=== PATIENT | female | born 1995 | race Caucasian/White ===

== ENCOUNTER → 2016-05-17 | Outpatient (CLI) | payer OTHER ==
[~2016-05-17] MED LIST: AMOX500C3 PO; DIPH25CA65 PO; ONDA4TAB65 PO; OXYC-57 PO; PEDICHW50 PO; PRENTAB26 PO; VNTHFA/IN INH
[2016-05-20 13:25] LABS: CHLAMYDIA TRACH RNA*** NOT DETECTED (NOT DETECTED); GC (NEIS GONORRHOEAE)RNA** NOT DETECTED (NOT DETECTED)
== END | disposition home or self-care (01) ==
LOC: C.LABSPEC 10:01
PROVIDERS: ATTEND Obstetrics & Gynecology
DX: O21.9 Vomiting of pregnancy, unspecified (principal)

== ENCOUNTER → 2016-07-18 | Outpatient (CLI) | payer OTHER ==
[2016-07-18 12:58] LABS: BASO % 0.4 %; BASO ABS # 0.03 K/uL (0-0.2); COMPLETE YES; EOS % 1.3 %; HEMATOCRIT 35.5 % (37-47); IG% 0.3 %; LYMPH % 18.4 %; LYMPH ABS # 1.46 K/uL (1.2-3.4); MEAN CELL VOLUME 83.9 fL (80-100); MEAN CORPUSCULAR HEMOGLOBIN 29.8 pg (25-34); MEAN CORPUSCULAR HGB CONC 35.5 g/dl (32-36); MONO % 6.4 %; NEUT % 73.2 %; PLATELET COUNT 192 K/uL (130-400); RED BLOOD COUNT 4.23 M/uL (4.2-5.4); WHITE BLOOD COUNT 7.94 K/uL (4.8-10.8)
[2016-07-18 13:35] LABS: ALKALINE PHOSPHATASE 80 U/L (45-117); ALT/SGPT 28 U/L (12-78); AST/SGOT 15 U/L (15-37)
[2016-07-18 14:15] LABS: GTGD 50 Grams
[2016-07-19 14:50] LABS: AFP CONCENTRATION 37.3 NG/ML; AFP MULTIPLE OF MEDIAN 1.21; AFPTS GESTATIONAL AGE 17.3 WEEKS; AFPTS INSULIN DEP DIABETIC? NO; AFPTS MATERNAL WT 214 LBS; ALPHA-FETOPROTEIN RACE CAUCASIAN=W; ESTRIOL MULTIPLE OF MEDIAN 0.82; HISTORY OF NTD NO; INHIBIN A 407 PG/ML; REPEAT SAMPLE? NO; hCG MULTIPLE OF MEDIAN 2.12
== END | disposition home or self-care (01) ==
LOC: C.LAB1850 11:24
PROVIDERS: ATTEND Obstetrics & Gynecology
DX: Z34.82 Encounter for supervision of other normal pregnancy, second trimester (principal); O21.9 Vomiting of pregnancy, unspecified; R89.9 Unspecified abnormal finding in specimens from other organs, systems and tissues

== ENCOUNTER → 2016-09-27 | Outpatient (CLI) | payer OTHER ==
[2016-09-27 17:14] LABS: HEMATOCRIT 33.7 % (37-47)
[2016-09-27 18:28] LABS: GTGD 50 Grams
== END | disposition home or self-care (01) ==
LOC: C.LAB1850 15:28
PROVIDERS: ATTEND Obstetrics & Gynecology
DX: Z34.83 Encounter for supervision of other normal pregnancy, third trimester (principal)

== ENCOUNTER → 2016-09-27 | Outpatient (CLI) | payer OTHER ==
[2016-09-27 18:22] LABS: URINE APPEARANCE CLEAR (CLEAR); URINE BILIRUBIN NEG (NEG); URINE COLOR YELLOW; URINE EPITHELIAL CELL AUTO 20-30 /lpf (0-5); URINE NITRITE NEG (NEG); URINE SPECIFIC GRAVITY 1.005 (1.000-1.030); UROBILINOGEN NEG (NEG)
[2016-09-27 18:23] LABS: MANUAL MICROSCOPIC REQUIRED? NO; REVIEW REQ? NO
== END | disposition home or self-care (01) ==
LOC: C.LABSPEC 17:29
PROVIDERS: ATTEND Obstetrics & Gynecology
DX: Z34.83 Encounter for supervision of other normal pregnancy, third trimester (principal)

== ENCOUNTER 2016-10-06 14:40 | Outpatient (CLI) | payer OTHER ==
[~2016-10-06] VITALS: Ht 175.3 cm; Wt 97.0 kg
[~2016-10-06 14:40] MED LIST changes: -AMOX500C3 PO; -DIPH25CA65 PO; -ONDA4TAB65 PO; -OXYC-57 PO; -PRENTAB26 PO; -VNTHFA/IN INH
[2016-10-06] MEDS ORDERED: VNTHFA/IN INH (16:09)
[2016-10-06 16:10] VITALS: Ht 175.3 cm; Wt 97.0 kg
[2016-10-06] MEDS ORDERED: ONDA4TAB65 PO (16:10)
[2016-12-21] MEDS ORDERED: OXYC-57 PO (07:37)
== END 2016-10-06 15:52 | disposition home or self-care (01) ==
LOC: C.LD 14:40 → C.OPB 14:40 → C.LD 15:38 → C.OPB 15:38 → UNDOADMIN 15:38 → C.OPB 15:52 → UNDODISIN 15:52
PROVIDERS: ATTEND Obstetrics & Gynecology
DX: O36.8130 Decreased fetal movements, third trimester, not applicable or unspecified (principal); R10.9 Unspecified abdominal pain; Z3A.28 28 weeks gestation of pregnancy

== ENCOUNTER 2016-11-30 15:14 | Emergency (ER) | payer OTHER ==
[~2016-11-30] VITALS: Ht 180.3 cm; Wt 96.8 kg
[~2016-11-30 15:14] MED LIST changes: -AMOX500C3 PO; -DIPH25CA65 PO; -OXYC-57 PO; -PRENTAB26 PO
[2016-11-30 15:16] VITALS: Ht 180.3 cm; Wt 96.8 kg
[2016-11-30 15:41] VITALS: TEMP 36.5
[2016-11-30 15:42] VITALS: O2SAT 96
[2016-11-30] MEDS ORDERED: ALBUT/IPRATROP 3MG/0.5MG NEB 3 ML VIAL INH STA (15:57)
--- NOTE | 2016-11-30 16:02 | DIAGNOSTIC IMAGING REPORT ---
CHEST 2 VIEWS ROUTINE CLINICAL HISTORY: cough, patient dyspnea COMPARISON STUDY: No previous studies for comparison. FINDINGS: The bones soft tissues and hemidiaphragms are normal. The cardiomediastinal silhouette is normal. The lungs are clear. The pulmonary vasculature is normal. IMPRESSION: Negative chest. The above report was generated using voice recognition software. It may contain grammatical, syntax or spelling errors. Electronically signed by: Holden Grey M.D. 11/30/2016 4:01 PM Dictated Date/Time: 11/30/2016 4:01 PM
--- NOTE | 2016-11-30 16:04 | EMERGENCY ROOM VISIT NOTE ---
History First contact with patient: 15:25 Chief Complaint: RESPIRATORY PROBLEMS Stated Complaint: TROUBLE BREATHING History of Present Illness The patient is a 21 year old female who presents to the Emergency Room with complaints of respiratory problems. The patient states that for the past 3 days , she has had a cough, wheezing and nasal congestion. Her cough has been productive of a yellowish mucus. She has a history of asthma and states that she has had both bronchitis and pneumonia in the past. She has been taking over -the-counter medications as well as amoxicillin for a urinary tract infection and feels that her symptoms are improving. She states that she has had some central chest pain with coughing, but this has been improving as well. She denies any fevers/chills, abdominal pain, nausea or vomiting. The patient sometimes has difficulty catching her breath when she coughs. She has not used any medications at home for her symptoms. She states she previously had an albuterol inhaler, but never had this medication refilled. The patient is currently 36 weeks . She denies any issues with her . Review of Systems A complete 10 point review of systems was reviewed with the patient with pertinent positives and negatives as per history of present illness. All else were negative. Past Medical/Surgical History Medical Problems: (1) Abdominal pain affecting (2) Asthma (3) History of pancreatitis Surgical Problems: (1) History of cholecystectomy Social History Smoking Status: Former Smoker Alcohol Use: none Current/Historical Medications Scheduled Albuterol Hfa (Ventolin Hfa), 2-4 PUFFS INH Q6H Amoxicillin (Amoxil), Unknown Dose PO BID Multivit/Min/Iron/Fol Ac/Pren ( Vitamin), 1 TAB PO DAILY Scheduled PRN Ondansetron Hcl (Zofran), 1 TAB PO Q6H PRN for Nausea Miscellaneous Medications Diphenhydramine Hcl (Benadryl Allergy), 1 CAP PO Physical Exam Vital Signs Date Time Temp Pulse Resp B/P (MAP) Pulse Ox O2 Delivery O2 Flow Rate FiO2 11/30/16 17:18 106 18 142/81 97 11/30/16 16:12 102 20 100 Nebulizer 11/30/16 15:42 96 Room Air 11/30/16 15:41 36.5 11/30/16 15:21 Room Air 11/30/16 15:16 107 16 123/74 96 Room Air Physical Exam VITALS: Vitals are noted on the nurse's note and reviewed by myself. Vital signs stable. GENERAL: This is a 21-year-old female, in no acute distress, nondiaphoretic, well-developed well-nourished. HEENT: Normocephalic. PERRLA. EOMI. Nares patent. Mucous membranes moist. Neck is supple without nuchal rigidity. HEART: Regular rate and rhythm without murmurs gallops or rubs. LUNGS: Diffuse expiratory wheezes throughout all lung valadez. No retractions or accessory muscle use. ABDOMEN: Gravid abdomen. NEURO: Patient was alert and oriented to person place and time. Medical Decision & Procedures ER Provider Diagnostic Interpretation: CHEST 2 VIEWS ROUTINE CLINICAL HISTORY: cough, patient dyspnea COMPARISON STUDY: No previous studies for comparison. FINDINGS: The bones soft tissues and hemidiaphragms are normal. The cardiomediastinal silhouette is normal. The lungs are clear. The pulmonary vasculature is normal. IMPRESSION: Negative chest. Medications Administered Medications (Trade) Dose Ordered Sig/Ariela Route Start Time Stop Time Status Last Admin Dose Admin Albuterol/ Ipratropium (Duoneb) 3 ml NOW STAT INH 11/30/16 15:57 11/30/16 15:58 DC 11/30/16 16:04 3 ML Albuterol (Ventolin Hfa Inhaler) 2 puffs NOW ONCE INH 11/30/16 17:00 11/30/16 17:01 DC 11/30/16 17:06 2 PUFFS ED Course The patient was evaluated as above. Labs were drawn and IV access was obtained. Patient was medicated with a DuoNeb treatment. Chest X-ray was performed and read by radiology as above. Patient was reevaluated and felt much better. Repeat exam with improvement of the patient's wheezing. Discharge instructions were reviewed with the patient. The patient verbalized understanding of my assessment and treatment plan and was discharged home in good condition. Medical Decision Differential diagnosis includes asthma exacerbation, pneumonia, bronchitis, pulmonary embolism, among others. The patient is a 21-year-old female who presents today complaining of cough. The cough has actually been improving over the past few days. There is nothing to suggest pulmonary embolism. A chest x-ray was performed and did not show any pneumonia. The patient was treated with a DuoNeb and felt much better. I did discuss this with the ED pharmacist and it was felt that the benefits of the breathing treatment outweigh the risks. Patient was given a Ventolin inhaler to use at home. She will follow-up with her primary care provider or OB /[employer]PERATOR for a recheck. She was instructed to return here if she has worsening of her condition or new/concerning symptoms. Based on the patient's presentation and work up, I feel the patient is stable for outpatient treatment. The patient was educated to return to the emergency department for any worsening of their current condition or new/concerning symptoms. She will follow up with her PROFESSOR SCULPTURE or PCP as needed. Medication Reconcilliation Current Medication List: was personally reviewed by me Blood Pressure Screening Patient's blood pressure: Normal blood pressure Impression Primary Impression: Cough Departure Information Dispostion Home / Self-Care Condition GOOD Referrals Myrna Grullon C.R.N.PDarcy (PCP) Patient Instructions My [facility] Additional Instructions Use the Ventolin inhaler as needed for cough/shortness of breath. Continue the amoxicillin as prescribed. Follow-up with your PROFESSOR SCULPTURE or family doctor in 2-3 days. Return to the emergency room with worsening shortness of breath, chest pain, high fevers, or any other new/concerning symptoms.
[2016-11-30] MEDS ORDERED: PRENTAB26 PO (16:11)
[2016-11-30] MEDS ORDERED: AMOX500C3 PO (16:11)
[2016-11-30] MEDS ORDERED: DIPH25CA65 PO (16:11)
[2016-11-30] MEDS ORDERED: ALBUTEROL HFA 8 GM INHALER INH ONE (17:00)
[2016-11-30 17:18] VITALS: BP 142/81; PULSE 106; O2SAT 97
== END 2016-11-30 17:21 | disposition home or self-care (01) ==
LOC: C.EDB 15:16 → C.EDC 17:21
DX: O99.89 Other specified diseases and conditions complicating pregnancy, childbirth and the puerperium (principal); Z3A.36 36 weeks gestation of pregnancy; R05 Cough; J45.909 Unspecified asthma, uncomplicated; Z87.01 Personal history of pneumonia (recurrent); Z87.440 Personal history of urinary (tract) infections; Z90.49 Acquired absence of other specified parts of digestive tract; Z87.891 Personal history of nicotine dependence; Z79.899 Other long term (current) drug therapy

== ENCOUNTER → 2016-11-30 | Outpatient (CLI) | payer OTHER ==
[~2016-11-30] MED LIST changes: +AMOX500C3 PO; +DIPH25CA65 PO; +ONDA4TAB65 PO; +OXYC-57 PO; +PRENTAB26 PO; +VNTHFA/IN INH
== END | disposition home or self-care (01) ==
LOC: C.LABSPEC 15:31
PROVIDERS: ATTEND Obstetrics & Gynecology
DX: Z34.83 Encounter for supervision of other normal pregnancy, third trimester (principal)

== ENCOUNTER 2016-12-19 05:55 | Inpatient (IN) | payer OTHER ==
--- NOTE | 2016-12-06 13:34 | PAT Medication Instructions ---
Service Date Dec 06, 2016. Current Home Medication List Albuterol Hfa (Ventolin Hfa), 2-4 PUFFS INH Q4 PRN for SOB/Wheezing Multivit/Min/Iron/Fol Ac/Pren ( Vitamin), 1 TAB PO QAM Ondansetron Hcl (Zofran), 1 TAB PO Q6H PRN for Nausea Medication Instructions For Your Scheduled Surgery - Hold the following medications the morning of surgery: Multivit/Min/Iron/Fol Ac/Pren ( Vitamin), 1 TAB PO QAM - Take the following medications the morning of surgery with a sip of water OTHERWISE NOTHING TO EAT OR DRINK : Albuterol Hfa (Ventolin Hfa), 2-4 PUFFS INH Q4 PRN for SOB/Wheezing (use if needed; BRING TO HOSPITAL) Ondansetron Hcl (Zofran), 1 TAB PO Q6H PRN for Nausea - Take the following medications as scheduled the night before surgery: Albuterol Hfa (Ventolin Hfa), 2-4 PUFFS INH Q4 PRN for SOB/Wheezing If you have any questions please call us at [phone] or [phone] or [phone]
[2016-12-06 14:50] LABS: BASO % 0.4 %; BASO ABS # 0.03 K/uL (0-0.2); COMPLETE YES; EOS % 0.9 %; HEMATOCRIT 38.5 % (37-47); IG% 0.7 %; LYMPH % 19.5 %; LYMPH ABS # 1.45 K/uL (1.2-3.4); MEAN CELL VOLUME 87.3 fL (80-100); MEAN CORPUSCULAR HEMOGLOBIN 30.2 pg (25-34); MEAN CORPUSCULAR HGB CONC 34.5 g/dl (32-36); MEAN PLATELET VOLUME 12.4 fL (7.4-10.4); MONO % 5.7 %; NEUT % 72.8 %; PLATELET COUNT 227 K/uL (130-400); RED BLOOD COUNT 4.41 M/uL (4.2-5.4); WHITE BLOOD COUNT 7.42 K/uL (4.8-10.8)
--- NOTE | 2016-12-09 17:48 | HISTORY & PHYSICAL EXAMINATION ---
DATE OF ADMISSION: 12/19/2016 PRINCIPAL DIAGNOSIS: Intrauterine at 39 weeks. PROCEDURE: Primary low transverse cervical section. HISTORY OF PRESENT ILLNESS: The patient is a 21-year-old 2, para 1-0-0-1 white female, EDC of 12/24/2016, who presents at 39+ weeks for primary section. She had a vacuum-assisted delivery with her first baby, but this appeared to be quite traumatic to the patient. She claims that she had stopped breathing after delivery, had to have a D&C because of bleeding and that the infant also had complications. She also had a cervical laceration that had to be repaired while doing the D&C. As a result of the prior delivery, she is requesting a primary section. She understands the risks and the procedure and all her questions were answered and she is willing to proceed. PAST MEDICAL HISTORY: Significant for heart murmur, but no need for SBE prophylaxis; migraines; bipolar disorder, for which she is not taking any medications at this time; anxiety, again no medications; and asthma, for which she uses an Albuterol inhaler as needed. ALLERGIES: LAMICTAL CAUSES A RASH, RISPERDAL CAUSES HIVES, AND LITHIUM CAUSES RASH . PAST SURGICAL HISTORY: She had a D&C after the of her child in 2016, tonsillectomy, wisdom teeth removed, cholecystectomy and shoulder surgery. MEDICATIONS: Albuterol inhaler, hydrocortisone 2.5% external lotion for rash, prednisone taper for recurrent bronchitis, ondansetron 4 mg every 6 hours as needed for nausea as well as a vitamin. OBSTETRICAL AND GYNECOLOGICAL HISTORY: Periods are every 30 days. No history of PID, VD or herpes. Pap smears are within normal limits in October of 2015. Delivery at 40+ weeks of a 6 pound 15 ounce male , a vacuum-assisted delivery resulting in bleeding, requiring D&C and repair of cervical laceration. SOCIAL HISTORY: She does smoke. FAMILY HISTORY: Noncontributory. HISTORY: Blood type is B negative. Antibody screen is negative. Hemoglobin at 28 weeks was 11.9 and hematocrit 33.7. She did receive RhoGAM on 09/27/2016. Glucolas have been within normal limits. Rubella is immune. RPR is nonreactive. Hepatitis is negative. HIV is negative. had been complicated by the presence of diffuse itching. LFTs were normal. Bile acids are still pending. GBS is negative. Anatomy scan was complete and within normal limits. PHYSICAL EXAMINATION: GENERAL: On December 06, she is a well-nourished and well developed white female in mild respiratory distress from ongoing cough. LUNGS: Reveal wheezes throughout, but no rhonchi or rales. HEART: Regular rate and rhythm. No obvious murmurs noted. ABDOMEN: Gravid and consistent with a term in size. Fundal height is 37 cm. PELVIC: Cervix is 1+ cm dilated, 70% effaced and -2 station and vertex presentation. EXTREMITIES: Without cyanosis or edema. There is no calf tenderness present. ASSESSMENT: A 21-year-old with prior traumatic delivery, now requesting primary section. Currently, having ongoing respiratory issues. She will be seeing primary care provider for further treatment and evaluation. For the section, both its risks and procedure were discussed at length with the patient and her . All questions were answered. She was given a 2.5% hydrocortisone lotion for her ongoing itching. Please see the orders for further directions. MTDD
[2016-12-19] VITALS (17 sets, daily range): BP systolic 105–131; BP diastolic 70–81; PULSE 52–67; TEMP 36.4–36.8; O2SAT 96–99; Ht 175.3 cm; Wt 96.0 kg
[~2016-12-19] VITALS: Ht 175.3 cm; Wt 96.0 kg
[~2016-12-19 05:55] MED LIST changes: -PEDICHW50 PO; +PRENTAB26 PO
[2016-12-19] MEDS ORDERED: LACTATED RINGER'S 1000ML 1,000 ML IV SCH (06:07)
[2016-12-19 06:26] LABS: BASO % 0.2 %; BASO ABS # 0.02 K/uL (0-0.2); COMPLETE YES; EOS % 0.4 %; HEMATOCRIT 35.1 % (37-47); IG% 0.4 %; LYMPH % 17.3 %; MEAN CELL VOLUME 86.9 fL (80-100); MEAN CORPUSCULAR HEMOGLOBIN 29.5 pg (25-34); MEAN CORPUSCULAR HGB CONC 33.9 g/dl (32-36); MEAN PLATELET VOLUME 12.2 fL (7.4-10.4); MONO % 5.4 %; NEUT % 76.3 %; PLATELET COUNT 234 K/uL (130-400); RED BLOOD COUNT 4.04 M/uL (4.2-5.4); WHITE BLOOD COUNT 12.72 K/uL (4.8-10.8)
[2016-12-19] MEDS ORDERED: CEFAZOLIN 2000 MG/60 ML D5W IV SCH (07:00)
[2016-12-19] MEDS ORDERED: CITRIC ACID/SODIUM CITRATE 15 ML UDC ONE (07:14)
--- NOTE | 2016-12-19 07:28 | History & Physical Bridge Note ---
H&P Re-Evaluation Bridge Note: I have examined the patient, reviewed the History & Physical and in the interval since the performance of the History & Physical I have noted the following changes of clinical significance: No changes noted
[2016-12-19] MEDS ORDERED: MoRPHine SULFATE PF 1 MG/ML 10 ML AMP/VIAL ONE (07:29)
[2016-12-19] MEDS ORDERED: FENTANYL CITRATE INJ 50 MCG/1 ML 2 ML VIAL ONE (08:15)
[2016-12-19] MEDS ORDERED: OXYTOCIN INJ 10 UNITS/ML VIAL ONE (08:42)
[2016-12-19] MEDS ORDERED: EpHEDrine SULFATE 50MG/5ML SYR ONE (08:42)
[2016-12-19] MEDS ORDERED: ONDANSETRON INJ 2 MG/ML 2 ML VIAL IV PRN ×2 (08:45→09:00)
[2016-12-19] MEDS ORDERED: FENTANYL CITRATE INJ 50 MCG/1 ML 2 ML VIAL IV PRN (08:45)
[2016-12-19] MEDS ORDERED: EpHEDrine SULFATE INJ 50 MG/ML AMP IV PRN ×2 (08:45→09:00)
[2016-12-19] MEDS ORDERED: HYDROmorphone INJ 1 MG/ML SYR IV PRN (08:45)
[2016-12-19] MEDS ORDERED: LABETALOL HCL IV 5 MG/ML 20ML IV PRN (08:45)
[2016-12-19] MEDS ORDERED: MEPERIDINE HCL 25 MG/ML CARP IV PRN (08:45)
[2016-12-19] MEDS ORDERED: ATROPINE SULFATE 0.1 MG/ML 5ML SYR IV PRN (08:45)
[2016-12-19] MEDS ORDERED: NALOXONE HCL INJ 1 MG in SODIUM CHLORIDE 0.9% 1000ML 1,000 ML IV PRN (08:49)
[2016-12-19] MEDS ORDERED: NALOXONE HCL INJ 0.08 MG in SYRINGE 1.8 ML IV PRN (08:49)
[2016-12-19] MEDS ORDERED: LACTATED RINGER'S 1000ML 500 ML IV PRN (08:49)
[2016-12-19] MEDS ORDERED: SODIUM CHLORIDE 0.9% 1000ML 1,000 ML IV PRN (08:49)
[2016-12-19] MEDS ORDERED: ALBUTEROL HFA 8 GM INHALER INH PRN (09:00)
[2016-12-19] MEDS ORDERED: NO NARCOTICS OR SEDATIVES SCH (09:00)
[2016-12-19] MEDS ORDERED: DiphenhydrAMINE HCL 50 MG/ML VIAL IV PRN ×2 (09:00)
[2016-12-19] MEDS ORDERED: MAGNESIUM HYDROXIDE SUSP 30 ML UDC PO PRN (09:00)
[2016-12-19] MEDS ORDERED: NALOXONE HCL 0.4 MG/1 ML VIAL/CARP IV PRN (09:00)
[2016-12-19] MEDS ORDERED: SENNA 8.6 MG TAB PO PRN (09:00)
[2016-12-19] MEDS ORDERED: MoRPHine SULFATE 2 MG/ML CARP IV PRN (09:00)
[2016-12-19] MEDS ORDERED: MoRPHine SULFATE PF 1 MG/ML 10 ML AMP/VIAL EPI PRN (09:00)
[2016-12-19] MEDS: SIMETHICONE 80 MG CHEW PO SCH ×4 (09:00→20:00)
--- NOTE | 2016-12-19 09:14 | [facility] Operative Report ---
Operative Report Operative Date Dec 19, 2016. Pre-Operative Diagnosis Elective Primary Caesarean Section; Prior Traumatic Delivery Post-Operative Diagnosis Same plus delivery of viable female 5 lbs 13.5 ozs. Procedure(s) Performed Primary Caesarean Section; Delivery of a live female child at [address] Abdul Rn Transition Surgeon(s) Dr. Davis Estimated Blood Loss 600 cc Findings gravid uterus normal ovaries tubes bilaterally Fluids 2000 Specimens cord blood placenta-hold Drains Watts to straight drainage. Anesthesia SAB Complication(s) None Disposition L&D I attest to the content of the Intraoperative Record and any orders documented therein. Any exceptions are noted below.
[2016-12-19] MEDS: OXYTOCIN INJ 20 UNITS in LACTATED RINGER'S 1000ML 1,000 ML IV SCH ×2 (09:33→17:57)
--- NOTE | 2016-12-19 09:38 | Anesthesiology Progress Note ---
Anesthesia Post Op Note Date & Time Dec 19, 2016 at 09:38 Notes Mental Status: alert / awake / arousable, participated in evaluation Pt Amnestic to Procedure: Yes Nausea / Vomiting: adequately controlled Pain: adequately controlled Airway Patency, RR, SpO2: stable & adequate BP & HR: stable & adequate Hydration State: stable & adequate Neuraxial Anesthesia: was administered, sensory block is resolving Anesthetic Complications: no major complications apparent
--- NOTE | 2016-12-19 12:02 | OPERATIVE REPORT ---
DATE OF OPERATION: 12/19/2016 SURGEON: Noni Montague MD ICT SUPPORT TECHNICIANS: Dr. Gabriela Davis, PGY1. PREOPERATIVE DIAGNOSES: Intrauterine at 39 weeks, prior traumatic vaginal delivery. POSTOPERATIVE DIAGNOSES: Same plus delivery of a 5-pound 13-ounce viable female infant. PROCEDURE: Primary low transverse cervical section. BLOOD LOSS: 600 mL. ANESTHESIA: Subarachnoid block. HISTORY: The patient is a 21-year-old 2, para 1-0-0-1 white female, EDC of 12/24/2016, who presents at 39+ 4 weeks for primary section. Her prior delivery was a vacuum-assisted delivery, but apparently was quite traumatic. She does have history of anxiety and bipolar disorder. Because of the trauma patient experienced with her first delivery, she is requesting a primary section. She understands the risks of procedure and is willing to proceed. GROSS FINDINGS: Uterus is gravid and consistent with a term in size. Bilateral ovaries and fallopian tubes are grossly normal. DESCRIPTION OF PROCEDURE: After the patient received adequate subarachnoid block, she was prepped and draped in the usual sterile fashion. A low transverse skin incision was made with a scalpel and carried to the fascia with the same scalpel. The fascial incision was then extended with Shipley scissors and the underlying rectus muscles bluntly and sharply dissected off of the overlying fascia. The peritoneum was then elevated and entered sharply. The bladder was taken down off the anterior surface of the uterus with Metzenbaum scissors and placed behind the bladder blade. The lower uterine segment was then entered with the scalpel and extended transversely. Membranes were ruptured for thin meconium stained fluid. The was delivered from the vertex presentation. Vacuum assisted through the incision with moderate fundal pressure. After the head was delivered, the mouth and nasopharynx were suctioned and there was spontaneous crying. The rest of the infant delivered easily. The cord was then clamped and cut and the infant handed off to Dr. Jeri Knapp who was in attendance as instrument repair specialist. There was vigorous crying & the infant is moving all 4 limbs. The placenta was expressed intact with a 3-vessel cord. Uterus was then exteriorized and covered with a clean lap sponge. The uterine cavity was then explored and found to be free of any placental tissue or membranes. The uterus was then closed in 2 layers in a running locking imbricating fashion with 0 Monocryl. Hemostasis was noted to be excellent. The posterior cul-de-sac was irrigated with normal saline as was the anterior cul-de-sac. Several clots were removed from the anterior cul-de-sac during this process. The uterus was placed back inside the abdominal cavity and the incision was examined once more and continued to have excellent hemostasis. The gutters were explored and some fluid and clot were removed. The rectus muscles were then brought together on the midline with individual stitches of 0 Monocryl. The fascia was closed in a running fashion with 0 Vicryl. After irrigating the adipose layer. The skin edges were reapproximated using a subcuticular stitch of 4-0 Vicryl. Urine was clear at the end of the case. Mother and tolerated the procedure well. I attest to the content of the Intraoperative Record and any orders documented therein. Any exceptions are noted below. CATINA
[2016-12-19] MEDS: KETOROLAC TROMETHAMINE 30 MG/ML VIAL IV. PRN (12:40)
[2016-12-19] MEDS: MEPERIDINE HCL 25 MG/ML CARP IV PRN ×2 (17:25→21:40)
[2016-12-19] MEDS: NALBUPHINE HCL INJ 10 MG/ML AMP IV PRN ×2 (18:07→21:58)
[2016-12-19] MEDS: DOCUSATE SODIUM 100 MG CAP PO SCH (20:00)
[2016-12-20] VITALS (8 sets, daily range): BP systolic 113–130; BP diastolic 72–84; PULSE 60–76; TEMP 36.6–36.9; O2SAT 93–98
[2016-12-20] MEDS: KETOROLAC TROMETHAMINE 30 MG/ML VIAL IV. PRN (00:04)
[2016-12-20] MEDS ORDERED: GUAIFENESIN 600 MG TABCR PO PRN (00:15)
--- NOTE | 2016-12-20 01:41 | OB/GYN Progress Note ---
[employer] Progress Note Date of Service Dec 20, 2016. Subjective conversation w/ patient, physical exam, chart review, lab review Ambulation: limited ambulation Voiding: no voiding problems Passing Gas: Yes Diet Tolerance: Regular Diet Lochia: Small Feeding Type: Bottle Feeding Pain: 8/10 at worst Review of Systems Constitutional: No fever Respiratory: No shortness of breath Cardiac: No chest pain Abdomen: No nausea, No vomiting Female : No dysuria Objective Vital Signs Date Time Temp Pulse Resp B/P (MAP) Pulse Ox O2 Delivery O2 Flow Rate FiO2 12/20/16 00:00 18 93 12/19/16 23:45 36.8 67 18 112/70 (84) Room Air 12/19/16 23:45 18 98 12/19/16 23:00 18 98 12/19/16 22:00 20 99 12/19/16 21:00 20 99 12/19/16 20:00 20 99 12/19/16 19:00 20 99 12/19/16 18:30 36.5 52 20 105/70 (82) Room Air 12/19/16 18:00 20 99 12/19/16 17:00 18 99 12/19/16 16:00 18 98 12/19/16 15:30 98 Room Air 12/19/16 15:30 36.4 60 20 131/81 (98) Room Air 12/19/16 15:00 20 98 12/19/16 14:00 18 98 12/19/16 13:00 18 97 12/19/16 12:00 36.7 65 18 115/76 (89) 97 Room Air 12/19/16 12:00 18 97 12/19/16 11:48 Room Air 12/19/16 11:45 60 18 122/70 (87) 96 Room Air 12/19/16 11:00 18 97 Physical Exam General Appearance: WELL-APPEARING Respiratory/Chest: lungs clear, normal breath sounds, no respiratory distress Cardiovascular: regular rate, rhythm Abdomen: normal bowel sounds, non tender, soft Fundus: Firm, Relation to Umbilicus (2 FB) Incision Description: Clean, Dry & Intact Extremities: non-tender, normal inspection, no pedal edema Laboratory Results Last 24 Hours Test 12/19/16 06:06 White Blood Count 12.72 K/uL Red Blood Count 4.04 M/uL Hemoglobin 11.9 g/dL Hematocrit 35.1 % Mean Corpuscular Volume 86.9 fL Mean Corpuscular Hemoglobin 29.5 pg Mean Corpuscular Hemoglobin Concent 33.9 g/dl Platelet Count 234 K/uL Mean Platelet Volume 12.2 fL Neutrophils (%) (Auto) 76.3 % Lymphocytes (%) (Auto) 17.3 % Monocytes (%) (Auto) 5.4 % Eosinophils (%) (Auto) 0.4 % Basophils (%) (Auto) 0.2 % Neutrophils # (Auto) 9.71 K/uL Lymphocytes # (Auto) 2.20 K/uL Monocytes # (Auto) 0.69 K/uL Eosinophils # (Auto) 0.05 K/uL Basophils # (Auto) 0.02 K/uL RDW Standard Deviation 40.4 fL RDW Coefficient of Variation 12.7 % Immature Granulocyte % (Auto) 0.4 % Immature Granulocyte # (Auto) 0.05 K/uL Medications Current Inpatient Medications Medications (Trade) Dose Ordered Sig/Ariela Route Start Time Stop Time Status Last Admin Dose Admin Lactated Ringer's 1,000 ml @ 1,000 mls/hr Q1H IV 12/19/16 06:07 01/18/17 06:06 12/19/16 06:59 1,000 MLS/HR Naloxone HCl (Narcan Inj) 0.1 mg UD PRN IV 12/19/16 09:00 12/20/16 01:45 Diphenhydramine HCl (Benadryl Inj) 25 mg Q6H PRN IV 12/19/16 09:00 12/20/16 01:45 Nalbuphine HCl (Nubain Inj) 5 mg Q10M PRN IV 12/19/16 09:00 12/20/16 01:45 12/19/16 21:58 5 MG Naloxone HCl 1 mg/ Sodium Chloride 1,002.5 ml @ 50 mls/hr Q20H3M PRN IV 12/19/16 08:49 12/20/16 01:45 Ondansetron HCl (Zofran Inj) 4 mg Q6H PRN IV 12/19/16 09:00 12/20/16 01:45 12/19/16 17:25 4 MG Ketorolac Tromethamine (Toradol Inj) 30 mg Q6H PRN IV. 12/19/16 09:00 12/20/16 01:45 12/20/16 00:04 30 MG Meperidine HCl (Demerol Inj) 25 mg Q15M PRN IV 12/19/16 09:00 12/20/16 01:45 12/19/16 21:40 25 MG Miscellaneous Information (Dc Intraspinal Morphine) 1 ea TODAY@0145 ONCE N/A 12/20/16 01:45 12/20/16 01:46 Miscellaneous Information (No Narcotics Or Sedatives) 1 ea UD N/A 12/19/16 09:00 12/20/16 01:45 Naloxone HCl 0.08 mg/Syringe 2 ml @ 1 mls/min Q2M PRN IV 12/19/16 08:49 12/20/16 01:45 Diphenhydramine HCl (Benadryl Cap) 50 mg HS PRN PO 12/19/16 09:00 12/20/16 01:45 Diphenhydramine HCl (Benadryl Inj) 25 mg HS PRN IV 12/19/16 09:00 12/20/16 01:45 Morphine Sulfate (MoRPHine SULFATE INJ) 2 mg Q6H PRN IV 12/19/16 09:00 12/20/16 01:45 Lactated Ringer's 500 ml @ 999 mls/hr Q31M PRN IV 12/19/16 08:49 12/20/16 01:45 Ephedrine Sulfate (EpHEDrine SULFATE INJ) 10 mg Q5M PRN IV 12/19/16 09:00 12/20/16 01:45 Morphine Sulfate (Duramorph Pf Inj) TODAY PRN EPI 12/19/16 09:00 12/20/16 01:45 Sodium Chloride 1,000 ml @ 15 mls/hr Q24H PRN IV 12/19/16 08:49 12/20/16 01:45 Albuterol (Ventolin Hfa Inhaler) DIRECTED Q4 PRN INH 12/19/16 09:00 01/18/17 08:59 Ketorolac Tromethamine (Toradol Inj) 30 mg Q6H PRN IV. 12/20/16 01:45 12/25/16 01:44 Meperidine HCl (Demerol Inj) 50 mg Q4H PRN IV 12/20/16 01:45 01/03/17 01:44 Meperidine HCl (Demerol Inj) 75 mg Q4H PRN IV 12/20/16 01:45 01/03/17 01:44 Oxycodone/ Acetaminophen (Percocet 5-325mg Tab) 1 tab Q4H PRN PO 12/20/16 01:45 01/03/17 01:44 Oxycodone/ Acetaminophen (Percocet 5-325mg Tab) 2 tab Q4H PRN PO 12/20/16 01:45 01/03/17 01:44 Ibuprofen (Motrin Tab) 600 mg Q4H PRN PO 12/19/16 09:00 01/18/17 08:59 Promethazine HCl 25 mg/Sodium Chloride 51 ml @ 204 mls/hr Q4H PRN IV 12/20/16 01:45 01/19/17 01:44 Ondansetron HCl (Zofran Inj) 4 mg Q4H PRN IV 12/20/16 01:45 01/19/17 01:44 Prenat Multivit/ [place]/Iron/Folic Ac ( Vitamin Tab) 1 tab DAILY PO 12/20/16 08:00 01/19/17 07:59 Bisacodyl (Dulcolax Tab) 5 mg HS ONCE PO 12/20/16 22:00 12/20/16 22:01 Docusate Sodium (coLACE CAP) 100 mg BID PO 12/19/16 20:00 01/18/17 19:59 12/19/16 20:00 100 MG Magnesium Hydroxide (Milk Of Magnesia Susp) 30 ml HS PRN PO 12/19/16 09:00 01/18/17 08:59 Zolpidem Tartrate (Ambien Tab) 5 mg HSZ PRN PO 12/20/16 01:45 01/19/17 01:44 Simethicone (Mylicon Chew Tab) 80 mg QID PO 12/19/16 09:00 01/18/17 08:59 12/19/16 20:00 80 MG Diphenhydramine HCl (Benadryl Cap) 25 mg QID PRN PO 12/20/16 01:45 01/19/17 01:44 Diphenhydramine HCl (Benadryl Inj) 25 mg QID PRN IV 12/20/16 01:45 01/19/17 01:44 Senna (Senokot Tab) 17.2 mg HS PRN PO 12/19/16 09:00 01/18/17 08:59 Guaifenesin (Mucinex Contr Rel Tab) 600 mg Q12 PRN PO 12/20/16 00:15 01/19/17 00:14 Assessment and Plan Post-Op Day Number: 1 Continue Routine Care: Resident Physician Supervision Note: I interviewed and examined the patient. Discussed with Dr. Davis and agree with findings and plan as documented in the note. Any exceptions or clarifications are listed here: [None] Documented By: Noni Franco A/P: This is a 21 y/o female, , POD#1 s/p elective . Hx of prior traumatic . She is clinically stable. Plan: - Vitals signs are reviewed and WNL (Tmax 36.8) - Last Hgb is 11.9 (12/19). This AM pending - Blood type B-, GBS neg, Rubella Immune - Routine post operative care - Encourage ambulation, monitor and control pain with medication as needed, continue with regular diet as tolerated and monitor lochia - Stool softeners and sitz bath recommended - Encourage breast feeding and educate about breast feeding Resident Involvement: Resident Care Provided Care Provided: OB Delivery
[2016-12-20] MEDS ORDERED: DiphenhydrAMINE HCL 50 MG/ML VIAL IV PRN (01:45)
[2016-12-20] MEDS ORDERED: DC INTRASPINAL MORPHINE ONE (01:45)
[2016-12-20] MEDS ORDERED: MEPERIDINE HCL 50 MG/ML CARP IV PRN ×2 (01:45)
[2016-12-20] MEDS ORDERED: KETOROLAC TROMETHAMINE 30 MG/ML VIAL IV. PRN (01:45)
[2016-12-20] MEDS ORDERED: ONDANSETRON INJ 2 MG/ML 2 ML VIAL IV PRN (01:45)
[2016-12-20] MEDS ORDERED: ZOLPIDEM TARTRATE 5 MG TAB PO PRN (01:45)
[2016-12-20] MEDS ORDERED: PROMETHAZINE HCL INJ 25 MG in SODIUM CHLORIDE 0.9% 50ML 50 ML IV PRN (01:45)
[2016-12-20] MEDS ORDERED: OXYCODONE/ACETAMINOPHEN 5-325 TAB PO PRN (01:45)
[2016-12-20] MEDS ORDERED: CEFAZOLIN IV 2,000 MG/60 ML D5W IV ONE (06:00)
--- NOTE | 2016-12-20 06:41 | Medical Student: [facility] ---
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 Subjective conversation w/ patient Ambulation: limited ambulation Voiding: no voiding problems Passing Gas: Yes Diet Tolerance: Regular Diet Lochia: Moderate Feeding Type: Bottle Feeding Pain: 8/10 at 0610 Notes: This is a 21-year-old, female who is post-op day 1, s/p primary elective C- section. There were no complications with her surgery and she states she is recovering well besides 8/10 pain around her incision site. Blood type is B negative, GBS negative. She has walked to the restroom but has not yet ambulated in the hallway.She states that there is some pain with voiding but no frequency or hesitancy. States that she has had some gas but no bowel movement yet. She has had some bleeding from the vagina but states that it is not severe or concerning to her. Her pain is 8/10 this morning and she is requesting pain medication. She has been able to eat a normal diet since last night and has not had an nausea or vomiting. Patient is bottle-feeding her baby because she states that she was not producing enough milk. Denies headache, dizziness, chest pain, shortness of breath, and leg/calf pain. Review of Systems Constitutional: No fever, No chills, No sweats, No weight loss, No weakness, No fatigue, No problem reported Respiratory: No cough, No sputum, No wheezing, No shortness of breath, No dyspnea on exertion, No dyspnea at rest, No hemoptysis, No problem reported Cardiac: No chest pain, No orthopnea, No PND, No edema, No claudication, No palpitations, No problem reported Breast: No see HPI, No breast lump, No change in shape, No nipple discharge, No breast pain, No problem reported Abdomen: + pain ("sore" around incision site) Female : No see HPI, No dysuria, No urinary frequency, No hematuria, No incontinence, No abnormal vaginal bleeding, No vaginal discharge, No problem reported Vitals are stable; max temp 36.6C, HR 60, BP 116/78. On physical exam the uterine fundus is 2 cm below the umbilicus and is firm. Lungs are clear to auscultation and heart is regular rate and rhythm. There is no swelling or tenderness in her lower extremities. Assessment/plan: This is a 21-year-old female who is post-op day 1, primary elective C section. Vitals are reviewed and stable. Provide routine post- section care. Continue to monitor for bleeding. Control pain with toradol. Encourage ambulation and breast feeding, if able. Objective Vital Signs Date Time Temp Pulse Resp B/P (MAP) Pulse Ox O2 Delivery O2 Flow Rate FiO2 12/20/16 04:30 36.6 60 18 116/78 (91) Room Air 12/20/16 01:45 18 98 12/20/16 01:00 18 97 12/20/16 00:00 18 93 12/19/16 23:45 36.8 67 18 112/70 (84) Room Air 12/19/16 23:45 18 98 12/19/16 23:00 18 98 12/19/16 22:00 20 99 12/19/16 21:00 20 99 12/19/16 20:00 20 99 12/19/16 19:00 20 99 12/19/16 18:30 36.5 52 20 105/70 (82) Room Air 12/19/16 18:00 20 99 12/19/16 17:00 18 99 12/19/16 16:00 18 98 12/19/16 15:30 98 Room Air 12/19/16 15:30 36.4 60 20 131/81 (98) Room Air 12/19/16 15:00 20 98 12/19/16 14:00 18 98 12/19/16 13:00 18 97 12/19/16 12:00 36.7 65 18 115/76 (89) 97 Room Air 12/19/16 12:00 18 97 12/19/16 11:48 Room Air 12/19/16 11:45 60 18 122/70 (87) 96 Room Air 12/19/16 11:00 18 97 Laboratory Results Last 24 Hours Test 12/20/16 06:00 Assessment and Plan Post-Op Day Number: 1
[2016-12-20 07:30] LABS: HEMATOCRIT 30.7 % (37-47)
[2016-12-20] MEDS: SIMETHICONE 80 MG CHEW PO SCH ×4 (08:34→19:56)
[2016-12-20] MEDS: DOCUSATE SODIUM 100 MG CAP PO SCH ×2 (08:34→19:56)
[2016-12-20] MEDS: OXYCODONE/ACETAMINOPHEN 5-325 TAB PO PRN ×4 (08:36→23:46)
[2016-12-20] MEDS: IBUPROFEN 600 MG TAB PO PRN ×4 (08:36→23:47)
[2016-12-20] MEDS: PRENATAL VITAMIN TAB PO SCH (08:42)
[2016-12-20] MEDS: AMOXICILLIN 500 MG CAP PO SCH ×2 (10:20→19:57)
[2016-12-20] MEDS: IPRATROPIUM BROMIDE/ALBUTEROL respimat INH INH SCH ×3 (10:21→19:57)
[2016-12-20] MEDS ORDERED: BISACODYL 5 MG TABEC PO ONE (22:00)
--- NOTE | 2016-12-21 06:10 | OB/GYN Progress Note ---
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 Subjective conversation w/ patient, physical exam, chart review, lab review Ambulation: ambulating normally Voiding: no voiding problems Passing Gas: Yes Diet Tolerance: Regular Diet Lochia: Small Feeding Type: Bottle Feeding Pain: 7-8/10 pain pain meds help Review of Systems Constitutional: No fever Respiratory: No shortness of breath Cardiac: No chest pain Abdomen: No nausea, No vomiting Female : No dysuria Objective Vital Signs Date Time Temp Pulse Resp B/P (MAP) Pulse Ox O2 Delivery O2 Flow Rate FiO2 12/20/16 23:40 36.6 76 16 123/83 (96) Room Air 12/20/16 23:40 Room Air 12/20/16 16:00 97 Room Air 12/20/16 16:00 36.6 67 18 130/84 (99) 97 Room Air 12/20/16 11:36 36.9 66 18 116/76 (89) 97 Room Air 12/20/16 09:05 Room Air 12/20/16 07:32 36.9 60 16 113/72 (86) 95 Room Air Physical Exam General Appearance: WELL-APPEARING Respiratory/Chest: lungs clear, normal breath sounds, no respiratory distress Cardiovascular: regular rate, rhythm Abdomen: normal bowel sounds, non tender, soft Fundus: Firm, Relation to Umbilicus (4 FB below) Incision Description: Clean, Dry & Intact Extremities: non-tender, no pedal edema Laboratory Results Last 24 Hours Test 12/20/16 07:08 12/21/16 06:00 Hemoglobin 10.0 g/dL Hematocrit 30.7 % Medications Current Inpatient Medications Medications (Trade) Dose Ordered Sig/Ariela Route Start Time Stop Time Status Last Admin Dose Admin Lactated Ringer's 1,000 ml @ 1,000 mls/hr Q1H IV 12/19/16 06:07 01/18/17 06:06 12/19/16 06:59 1,000 MLS/HR Albuterol (Ventolin Hfa Inhaler) DIRECTED Q4 PRN INH 12/19/16 09:00 01/18/17 08:59 Ketorolac Tromethamine (Toradol Inj) 30 mg Q6H PRN IV. 12/20/16 01:45 12/25/16 01:44 Meperidine HCl (Demerol Inj) 50 mg Q4H PRN IV 12/20/16 01:45 01/03/17 01:44 Meperidine HCl (Demerol Inj) 75 mg Q4H PRN IV 12/20/16 01:45 01/03/17 01:44 Oxycodone/ Acetaminophen (Percocet 5-325mg Tab) 1 tab Q4H PRN PO 12/20/16 01:45 01/03/17 01:44 12/20/16 23:46 1 TAB Oxycodone/ Acetaminophen (Percocet 5-325mg Tab) 2 tab Q4H PRN PO 12/20/16 01:45 01/03/17 01:44 Ibuprofen (Motrin Tab) 600 mg Q4H PRN PO 12/19/16 09:00 01/18/17 08:59 12/20/16 23:47 600 MG Promethazine HCl 25 mg/Sodium Chloride 51 ml @ 204 mls/hr Q4H PRN IV 12/20/16 01:45 01/19/17 01:44 Ondansetron HCl (Zofran Inj) 4 mg Q4H PRN IV 12/20/16 01:45 01/19/17 01:44 Prenat Multivit/ Cane Burner/Iron/Folic Ac ( Vitamin Tab) 1 tab DAILY PO 12/20/16 08:00 01/19/17 07:59 12/20/16 08:42 1 TAB Docusate Sodium (coLACE CAP) 100 mg BID PO 12/19/16 20:00 01/18/17 19:59 12/20/16 19:56 100 MG Magnesium Hydroxide (Milk Of Magnesia Susp) 30 ml HS PRN PO 12/19/16 09:00 01/18/17 08:59 Zolpidem Tartrate (Ambien Tab) 5 mg HSZ PRN PO 12/20/16 01:45 01/19/17 01:44 Simethicone (Mylicon Chew Tab) 80 mg QID PO 12/19/16 09:00 01/18/17 08:59 12/20/16 19:56 80 MG Diphenhydramine HCl (Benadryl Cap) 25 mg QID PRN PO 12/20/16 01:45 01/19/17 01:44 12/20/16 02:32 25 MG Diphenhydramine HCl (Benadryl Inj) 25 mg QID PRN IV 12/20/16 01:45 01/19/17 01:44 Senna (Senokot Tab) 17.2 mg HS PRN PO 12/19/16 09:00 01/18/17 08:59 12/20/16 19:56 17.2 MG Guaifenesin (Mucinex Contr Rel Tab) 600 mg Q12 PRN PO 12/20/16 00:15 01/19/17 00:14 12/20/16 02:32 600 MG Amoxicillin (Amoxil Cap) 500 mg BID PO 12/20/16 10:00 12/27/16 09:59 12/20/16 19:57 500 MG Prednisone (PredniSONE TAB) 10 mg DAILY PO 12/21/16 08:00 01/20/17 07:59 12/20/16 10:20 10 MG Albuterol/ Ipratropium (Combivent Respimat Inh) 1 puffs QID INH 12/20/16 12:00 01/19/17 11:59 12/20/16 19:57 1 PUFFS Assessment and Plan Post-Op Day Number: 2 Continue Routine Care: A/P: This is a 21 y/o female, , POD#2 s/p elective . Hx of prior traumatic . She is clinically stable. Plan: - Vitals signs are reviewed and WNL (Tmax 36.9) - Last Hgb is 10 (12/20). This AM pending - Blood type B-, GBS neg, Rubella Immune - Routine post operative care - Encourage ambulation, monitor and control pain with medication as needed, continue with regular diet as tolerated and monitor lochia - Stool softeners and sitz bath recommended - Encourage breast feeding and educate about breast feeding Resident Physician Supervision Note: I interviewed and examined the patient. Discussed with Dr. Davis and agree with findings and plan as documented in the note. Any exceptions or clarifications are listed here: [None] Documented By: Melyssa Osborne Resident Involvement: Resident Care Provided Care Provided: OB Delivery
[2016-12-21] MEDS: IBUPROFEN 600 MG TAB PO PRN ×2 (06:17→10:42)
[2016-12-21] MEDS: OXYCODONE/ACETAMINOPHEN 5-325 TAB PO PRN ×2 (06:18→10:42)
--- NOTE | 2016-12-21 07:18 | Medical Student: [facility] ---
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 Subjective conversation w/ patient Ambulation: ambulating normally Voiding: no voiding problems Passing Gas: Yes Diet Tolerance: Regular Diet Lochia: Small Feeding Type: Bottle Feeding Pain: 3/10 supine, 6/10 with coughing Notes: This is a 21 year old female who is post-op day 2, s/p elective primary low transverse section. There were no complications with the procedure. Her blood type is B negative, she is rubella immune, and is GBS negative. She is ambulating and voiding well and is passing gas/moving her bowels. She has some mild vaginal bleeding and her pain is 3/10 around her incision, especially when she coughs. Patient is eating well and would like to go home today. She denies nausea/vomiting, headache, chest pain, shortness of breath, and burning with urination, but she does have a cough for which she was given an inhaler yesterday. Review of Systems Constitutional: No fever, No chills, No sweats, No weight loss, No weakness, No fatigue, No problem reported Respiratory: + cough Cardiac: No chest pain, No orthopnea, No PND, No edema, No claudication, No palpitations, No problem reported Breast: No see HPI, No breast lump, No change in shape, No nipple discharge, No breast pain, No problem reported Abdomen: + pain (incision) Female : + see HPI Vitals are stable; max temp 36.6C, HR 76, BP 123/83. On physical exam the uterine fundus is 2 cm below the umbilicus and is firm. Harsh lung sounds are heard bilaterally but there is no wheezing. Heart is regular rate and rhythm. There is no swelling or tenderness in her lower extremities. Assessment/plan: This is a 21-year-old female who is post-op day 2, primary elective low transverse section. Vitals are reviewed and stable. Provide routine post- section care. Continue to monitor for bleeding (pre-op Hb 12.4, post-op labs pending). Control pain with ibuprofen and Percocet as directed. Encourage ambulation and breast feeding if able. Objective Vital Signs Date Time Temp Pulse Resp B/P (MAP) Pulse Ox O2 Delivery O2 Flow Rate FiO2 12/20/16 23:40 36.6 76 16 123/83 (96) Room Air 12/20/16 23:40 Room Air 12/20/16 16:00 97 Room Air 12/20/16 16:00 36.6 67 18 130/84 (99) 97 Room Air 12/20/16 11:36 36.9 66 18 116/76 (89) 97 Room Air 12/20/16 09:05 Room Air 12/20/16 07:32 36.9 60 16 113/72 (86) 95 Room Air Laboratory Results Last 24 Hours Test 12/20/16 07:08 12/21/16 06:00 Hemoglobin 10.0 g/dL Hematocrit 30.7 % Assessment and Plan Post-Op Day Number: 2
--- NOTE | 2016-12-21 07:20 | Discharge Instructions ---
Discharge Instructions Date of Service Dec 21, 2016. Admission Reason for Admission: Primary Elective Section Delivery Discharge Discharge Diagnosis / Problem: after csection delivery Discharge Goals Goal(s): Routine recovery after delivery Medications Continue Dispensed Medications: supercream, dermaplast, tucks, lansinoh Activity Recommendations Activity Limitations: per Instructions/Follow-up section . Instructions / Follow-Up Instructions / Follow-Up ACTIVITY RECOMMENDATIONS: * Gradual return to full activity over the next 2-3 weeks. * No lifting - nothing heavier than baby over the next 2-3 weeks. * Do not engage in vigorous exercise, sexual activity or sports until cleared by your physician. * Do not drive or operate any motorized equipment until cleared by your physician. * You may shower/bathe daily. MEDICATIONS: For discomfort or pain, you may use Acetaminophen (Tylenol), Ibuprofen (Advil), or Naproxen (Aleve) following the package directions. For constipation you may use Colace following the package directions. BREAST CARE: If you are not breast feeding: * Wear a supportive bra 24 hours a day for one to two weeks. * Avoid stimulating your breasts and nipples as much as possible during the first few weeks after delivery. * When taking a shower, have the warm water hit your back, not breasts. * When your breasts feel full, apply ice packs. Usually three to four times a day helps ease the discomfort. * Take a mild pain medication (Tylenol / Motrin) when you are uncomfortable. If breast feeding: * Use breast milk to lubricate nipples. Lansinoh cream may be used for sore nipples. You do not need to remove cream prior to breast feeding. If using a different brand of cream, check the label for directions regarding removal of cream prior to nursing. * Wear a supportive bra. * If having problems with breasts or breast feeding, call a development consultant or your health care provider. SPECIAL CARE INSTRUCTIONS: When you are discharged from the hospital, it is important for you to follow the instructions listed below: * During the first week at home, you should be able to care for yourself and your baby. In addition, the usual light household activities are encouraged. * Limit your activities to the way you feel. Do not try to clean the house or move furniture. Be sensible. * If you actively engage in sports and have done so up until the time of your delivery, you may resume these activities as soon as you feel able. This may take up to one month or even longer. Use good judgment. * Continue to take your vitamins for at least six weeks after the of your baby. * Your diet need not be limited unless you were on a special diet before your delivery. Breast-feeding mothers need around 2500 calories per day and at least 64-80 ounces of fluid per day (8 to 10 glasses). * You should eat foods from the four major food groups. Crash diets or fad diets are to be avoided. Eating lean meats, fresh fruits and vegetables, low-fat dairy products, high fiber foods and a regular exercise program, will help you get back to your pre- weight without putting your health at risk. * Constipation is sometimes a problem after delivery. Take a mild laxative as needed. If breast feeding, Milk of Magnesia is acceptable to use. You may use a suppository or Fleets enema. * A daily shower or tub bath is suggested. Wash incision daily with warm soapy water and pat dry. It doesn't need to be covered unless drainage is present. * A bloody vaginal discharge will usually continue until around four weeks . A small amount of bleeding may continue for as long as six weeks. Vaginal discharge changes from the bright red bleeding after delivery to pink then brownish and finally yellowish-pink before becoming white and disappearing. * Bleeding may increase with activity. Your first period may come in 4-8 weeks. If you are breast feeding, your period may be delayed even longer. * Mccord (sex) can begin whenever both you and your partner feel comfortable and do not have any form of genital infection. It is recommended that you wait at least six weeks for internal and external healing to occur. If you have questions, please talk to your health care practitioner. A condom should be used to prevent infection and . * Foreplay, gentle intercourse and lubrication is very important the first several times to prevent pain. A water-based lubricant such as K-Y jelly or Astroglide may be used. * If you have RH negative blood and your baby is RH positive, you will receive RHOGAM by injection prior to discharge. The nurse will give you a card to keep with you that has the date and place that you received RHOGAM after delivery. * During your care, you had a Rubella screen done to check for the presence of rubella antibodies in your blood. If your test was negative, you will receive a Rubella vaccine prior to discharge. This vaccine may cause a fever, soreness at the injection site and flu-like symptoms. If these symptoms persist, notify your health care practitioner. is not advised for one month after a Rubella vaccine. * Verbalizes understanding of car seat law as reviewed with patient nursing. * Car Seat hand-out given and reviewed with patient by nursing. * Shaken baby information reviewed with patient by nursing. Call you doctor if: * Heavy bleeding (saturating several pads an hour) or passing clots the size of your fist. * A fever >101 degrees F (38.3 degrees C) on two occasions four hours apart and /or chills. * Unusual pain in the pelvic or vaginal areas. * Call the doctor for any increased redness, drainage or swelling around the incision and any pain unrelieved by prescribed pain medication. * "Baby Blues" lasting longer than two weeks. If you have any questions or concerns, call your health care practitioner at . FOLLOW UP VISIT: * Please call the office at to schedule a 6 week examination. It is important you keep this appointment. It is important for you to make arrangements for either yearly or twice yearly check-ups thereafter. Current Hospital Diet Patient's current hospital diet: Regular OB Diet Discharge Diet Recommended Diet: Regular Diet Procedures Procedures Performed: Primary Caesarean Section; Delivery of a live female child at 0807 Pending Studies Studies pending at discharge: no Medical Emergencies . Who to Call and When: Medical Emergencies: If at any time you feel your situation is an emergency, please call [phone] immediately. . Non-Emergent Contact Non-Emergency issues call your: [facility] . . "Provider Documentation" section prepared by Gabriela Davis. . VTE Core Measure Inpt VTE Proph given/why not?: SCD's
[2016-12-21] MEDS ORDERED: OXYC-57 PO (07:37)
[2016-12-21 07:55] VITALS: BP 116/81; PULSE 58; TEMP 36.3; O2SAT 97
[2016-12-21 08:09] LABS: BASO % 0.3 %; BASO ABS # 0.03 K/uL (0-0.2); COMPLETE YES; EOS % 1.6 %; HEMATOCRIT 31.9 % (37-47); IG% 0.5 %; LYMPH % 23.4 %; LYMPH ABS # 2.46 K/uL (1.2-3.4); MEAN CELL VOLUME 87.9 fL (80-100); MEAN CORPUSCULAR HEMOGLOBIN 29.5 pg (25-34); MEAN CORPUSCULAR HGB CONC 33.5 g/dl (32-36); MEAN PLATELET VOLUME 11.9 fL (7.4-10.4); MONO % 7.3 %; NEUT % 66.9 %; PLATELET COUNT 200 K/uL (130-400); RED BLOOD COUNT 3.63 M/uL (4.2-5.4); WHITE BLOOD COUNT 10.53 K/uL (4.8-10.8)
[2016-12-21] MEDS: PRENATAL VITAMIN TAB PO SCH (08:24)
[2016-12-21] MEDS: IPRATROPIUM BROMIDE/ALBUTEROL respimat INH INH SCH (08:24)
[2016-12-21] MEDS: AMOXICILLIN 500 MG CAP PO SCH (08:25)
[2016-12-21] MEDS: SIMETHICONE 80 MG CHEW PO SCH (08:25)
[2016-12-21] MEDS: DOCUSATE SODIUM 100 MG CAP PO SCH (08:25)
[2016-12-21 12:10] VITALS: BP_DIAS 81; PULSE 58; TEMP 36.3
--- NOTE | 2016-12-23 11:08 | DISCHARGE SUMMARY ---
PRINCIPAL DIAGNOSIS: Intrauterine at 39 weeks, prior traumatic vaginal delivery. PRINCIPAL PROCEDURE: Primary low transverse cervical section. HISTORY: The patient is a 21-year-old 2, para 1-0-0-1 white female, EDC of 12/24/2016 who presented at 39+ weeks for primary section. She had had a vacuum-assisted delivery with her first baby and apparently this event was quite traumatic for the patient. She is requesting elective primary section for this delivery. This was done without complications. She had an uncomplicated postop course and remained afebrile throughout her hospital stay. She was eating a regular diet on her 1st day and ambulating without difficulty, voiding without difficulty. Hemoglobin on admission was 13.3, hematocrit 38.5. First preop was 11.9, hematocrit 35.1. First postop day hemoglobin 10.0, hematocrit 30.7. Second postop day hemoglobin 10.7, hematocrit of 31.9. She was sent home in good condition with prescriptions for Percocet 1-2 tablets p.o. q. 4 hours p.r.n. pain, Motrin 600 mg p.o. q. 4-6 hours p.r.n. pain. She is to be seen in the office in 6 weeks for followup visit. She is to call for a temperature of 101 degrees or higher, heavy vaginal bleeding, burning with urination, increased redness, drainage or pain in her incision or any other concerns.
== END 2016-12-21 12:10 | disposition home or self-care (01) | DRG 766 ==
LOC: C.LD 05:55 → C.OBG 10:58 → EDSTATUS 14:09
PROVIDERS: ADMIT Obstetrics & Gynecology; ATTEND Obstetrics & Gynecology
PROC: 10D00Z1 Extraction of Products of Conception, Low, Open Approach (ICD-10-PCS; principal; 2016-12-19 07:30)
DX: O99.52 Diseases of the respiratory system complicating childbirth (principal); J45.909 Unspecified asthma, uncomplicated; O99.42 Diseases of the circulatory system complicating childbirth; R01.1 Cardiac murmur, unspecified; O99.344 Other mental disorders complicating childbirth; O26.893 Other specified pregnancy related conditions, third trimester; Z67.21 Type B blood, Rh negative; Z79.899 Other long term (current) drug therapy; Z37.0 Single live birth; Z3A.39 39 weeks gestation of pregnancy

== ENCOUNTER → 2017-12-01 | Outpatient (CLI) | payer OTHER ==
[~2017-12-01] MED LIST changes: +OXYC-57 PO
== END | disposition home or self-care (01) ==
LOC: C.PAPS 10:46
PROVIDERS: ATTEND Obstetrics & Gynecology
DX: O09.30 Supervision of pregnancy with insufficient antenatal care, unspecified trimester (principal); Z11.51 Encounter for screening for human papillomavirus (HPV)

== ENCOUNTER → 2017-12-01 | Outpatient (CLI) | payer OTHER ==
[2017-12-01 14:48] LABS: BASO % 0.2 %; BASO ABS # 0.02 K/uL (0-0.2); EOS % 1.4 %; EOS ABS # 0.12 K/uL (0-0.5); HEMATOCRIT 35.9 % (37-47); HEMOGLOBIN 12.7 g/dL (12.0-16.0); IG# 0.02 K/uL (0.00-0.02); LYMPH % 21.4 %; LYMPH ABS # 1.77 K/uL (1.2-3.4); MEAN CELL VOLUME 85.3 fL (80-100); MEAN CORPUSCULAR HEMOGLOBIN 30.2 pg (25-34); MEAN CORPUSCULAR HGB CONC 35.4 g/dl (32-36); MEAN PLATELET VOLUME 10.9 fL (7.4-10.4); MONO % 6.8 %; MONO ABS # 0.56 K/uL (0.11-0.59); NEUT ABS # 5.79 K/uL (1.4-6.5); PLATELET COUNT 185 K/uL (130-400); RED CELL DISTRIBUTION WIDTH CV 13.4 % (11.5-14.5); RED CELL DISTRIBUTION WIDTH SD 41.5 fL (36.4-46.3); WHITE BLOOD COUNT 8.28 K/uL (4.8-10.8)
== END | disposition home or self-care (01) ==
LOC: C.LAB1850 13:25
PROVIDERS: ATTEND Obstetrics & Gynecology
DX: O99.331 Smoking (tobacco) complicating pregnancy, first trimester (principal)

== ENCOUNTER → 2018-01-02 | Outpatient (CLI) | payer OTHER | END | disposition home or self-care (01) | LOC: C.LAB1850 14:42 | PROVIDERS: ATTEND Obstetrics & Gynecology | DX: O99.330 Smoking (tobacco) complicating pregnancy, unspecified trimester (principal) ==

== ENCOUNTER 2023-02-23 07:30 | Inpatient (IN) ==
--- NOTE | 2023-02-21 14:26 | Anesthesiology Consultation ---
Date of Service February 21, 2023 Assessment & Plan (1) Encounter for pre-operative examination: Plan - awaiting COVID test. - Per process controls technician on 02/21/2023: Cough, shortness of breath, wheezing congestion, runny nose, sore throat x 2-3 weeks, patient states OB was made aware. I contacted patient who states she was prescribed an antibiotic and "narcotics" at [facility] and has experienced improvement in these symptoms but has recently been experiencing ear pain which is new. I advised that she seek medical evaluation today or contact her OB regarding her symptoms including new ear pain. I also advised COVID testing would be needed given upcoming surgery per current policy. She states plans to go to [facility] regarding symptoms and needed COVID testing. She also reported urinary urgency and vaginal itching which I advised she should also discuss at [facility] and with her OB. 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 History Surgery Operation Date: 02/27/23 07:30 Proposed Procedures p Section (Delivery of Baby Through Abdominal Incision) - Jody Muñoz MD, FACOG Height/Weight Height: 5 ft 11 in Weight: 98.43 kg Allergies Allergy/AdvReac Type Severity Reaction Status Date / Time coconut Allergy Severe ANAPHYLAXIS Verified 02/21/23 13:40 guanfacine Allergy Severe DELIRIUM Verified 02/21/23 13:40 lamotrigine Allergy Severe DELIRIUM Verified 02/21/23 13:40 lithium Allergy Severe MENTALLY Verified 02/21/23 13:40 UNAWARE OF ACTIONS risperidone Allergy Unknown RASH Verified 02/21/23 13:40 ketchup Allergy Mild HIVES Uncoded 02/17/23 13:01 Medications Home Medications Medication Instructions Recorded Confirmed Last Taken albuterol sulfate 90 mcg/actuation 1 - 2 puff inhalation Q4H PRN 09/21/22 02/21/23 Unknown aerosol inhaler shortness of breath, wheezing multivitamin 1 tab PO DAILY 09/21/22 02/21/23 Unknown hydroxyzine HCl 25 mg tablet 25 mg PO QID PRN itching #36 tabs 12/29/22 02/21/23 Unknown ondansetron HCl 4 mg tablet 4 mg PO Q6H PRN nausea and 01/31/23 02/21/23 Unknown vomiting #20 tabs Medical Marijuana 1 dose inhalation UD 02/21/23 02/21/23 Unknown benzonatate 100 mg capsule 100 mg PO TID PRN Cough 02/21/23 02/21/23 Unknown cyproheptadine 4 mg tablet 8 mg PO HS 02/21/23 02/21/23 Unknown diphenhydramine HCl 25 mg capsule 50 mg PO HS 02/21/23 02/21/23 Unknown doxycycline hyclate 100 mg capsule 100 mg PO BID 02/21/23 02/21/23 Unknown gabapentin 300 mg capsule 300 mg PO BID 02/21/23 02/21/23 Unknown Past Medical History Medical History (Updated 02/21/23 @ 14:52 by Sary Grayson PA-C) Anxiety Asthma Bipolar 1 disorder with judy Cholestasis of Degenerative lumbar disc Heart murmur per patient was told at 17 years of age that when she is stressed "heart skips a couple beats" Denies h/o echo or being told of valve issue; denies change or worsening Hx of carpal tunnel syndrome bilat. Hx of migraines Medical marijuana use Neuropathy Restless leg syndrome Sciatica Smoker 10-20 per day Tendonitis TMJ (temporomandibular joint disorder) clicks and pops, no locking for "quite some time" Varicella vaccination Past Family History Family History Grandmother (Maternal) Breast cancer Grandmother (Paternal) Diabetes Grandfather (Paternal) Diabetes Brother Spina bifida half brother, age 2 Denies family history of Ovarian cancer Colorectal cancer Past Surgical History Surgical History S/P section x3 S/P cholecystectomy S/P dilatation and curettage S/P shoulder surgery S/P tonsillectomy and adenoidectomy S/P wisdom tooth extraction Social History Smoking Status: Current every day smoker Smoking cigarettes per day: 10-20 Do You Dip or Chew Tobacco: No Hx Alcohol Use: Yes alcohol intake frequency: holidays/special occasions only Alcohol Intake Frequency Comment: just on a social basis, only 4-5x in the last 2 years Hx Substance Use: Yes (medical card) substance use type: marijuana Last Used Substance Other:: daily-uses about 3x per day, just a few "puffs" each time
--- NOTE | 2023-02-26 23:10 | History & Physical Report ---
Date of Service February 26, 2023 Assessment & Plan (1) Tobacco smoking affecting : (2) Need for rhogam due to Rh negative mother: (3) Previous delivery affecting , antepartum: (4) Group beta Strep positive: (5) Pelvic kidney: (6) Chronic pain: Plan Patient being admitted for repeat c/s x 4. She declines tubal ligation. complicated by poor care, multiple medication use, fetus with pelvic kidney, MJ and tobacco use. The risks of surgery were discussed with the patient including the risks of anesthesia, bleeding requiring transfusion, infection, poor wound healing, urinary retention, damage to surrounding structures including bowels, bladder, vessels, nerves and ureters that may require further surgery, hospitalization or intervention, injury to the baby. The other risks of any surgery were discussed including heart attack, blood clots, stroke or . Plan to type and cross on admission and get urine drug screen. Will plan ss consult prior to discharge. Will reconfirm medications on admission. Her first c/s was done here at [facility] as an elective with Dr. Montague. Her second and third c/s were done at [facility] and we do not have any documentation of them. She notes that she had no issues with any of her c/s. Surgery planned for 02/27. History of Present Illness Chief Complaint: presents for repeat c/s Primary Care Provider: Hammad Villeda Patient is a 27yowf with iup at 39 6/7 weeks who presents to labor and delivery for a repeat c/s. Her has been complicated by poor care with limited visits. Her also compicated by the following. and Delivery Plans Need for Rhogam d/t Rh neg mother -Rhogam given 12/16/22- MK Previous x3 -for repeat CS C/S SCHEDULED FOR 02/23/[address] SOW AND DR. MONTAGUE ASSIST PATIENT RESCHEDULED C/S TO 02/27/[address] DIEGO AND DR. LOPES ASSIST Hx PPH--after vavd of her first child with need for D&C, no issues with other pregnancies Asthma, Current everyday smoker, rare marijuana use Hx Cholestasis x 2 -mfm consult has recs if develops -no evidence of this in current Bipolar d/o and chronic pain disorder- med use [facility] MFM consult due to medication use- 09/26/22 -no specific monitoring for her meds -recomnd d/c MJ in GBS + urine-treat in labor Pelvic Kidney, *MFM consult Weekly NST @ 37wks Q4wk Growth OB Labs: Blood Type B Negative 09/21/22 Antibody Screen NEGATIVE 12/16/22 Hemoglobin 11.8 g/dl (12.0-16.0) L 12/16/22 Hematocrit 33.8 % (37.0-47.0) L 12/16/22 Mean Corpuscular Volume 88.7 fL (80.0-100.0) 09/21/22 Platelet Count 216 K/uL (130-400) 09/21/22 Rubella IgG Antibody Immune (Immune) 09/21/22 Rapid Plasma Reagin Nonreactive (Nonreactive) 09/21/22 Hepatitis B Surface Antigen NEG (NEG) 12/01/17 Hepatitis B Surface Antigen. NON-REACTIVE (NON-REACTIVE) 09/21/22 Hepatitis C Antibody (EIA) NON-REACTIVE (NON-REACTIVE) 09/21/22 HIV (1&2) Ab and P24 Ag, 4th Gener NEG (NEG) 12/01/17 HIV (1&2) Ag and Ab Confirmation NON-REACTIVE (NON-REACTIVE) 09/21/22 Glucose 1 Hour 50 gm Load 112 mg/dl (70-130) 12/16/22 OB Optional Labs: Chlamydia trachomatis RNA Not Detected (NotDetected) 09/09/22 Neisseria gonorrhoeae RNA Not Detected (NotDetected) 09/09/22 Labs Reviewed: gbs positive urine low risk panorama--akh Horizon 14 neg--ak Allergies Allergy/AdvReac Type Severity Reaction Status Date / Time coconut Allergy Severe ANAPHYLAXIS Verified 02/24/23 11:15 guanfacine Allergy Severe DELIRIUM Verified 02/24/23 11:15 lamotrigine Allergy Severe DELIRIUM Verified 02/24/23 11:15 lithium Allergy Severe MENTALLY Verified 02/24/23 11:15 UNAWARE OF ACTIONS risperidone Allergy Unknown RASH Verified 02/24/23 11:15 ketchup Allergy Mild HIVES Uncoded 02/24/23 11:15 Home Medications Medication Instructions Recorded Confirmed Type albuterol sulfate 90 mcg/actuation 1 - 2 puff inhalation Q4H PRN 09/21/22 02/24/23 History aerosol inhaler shortness of breath, wheezing multivitamin 1 tab PO DAILY 09/21/22 02/24/23 History hydroxyzine HCl 25 mg tablet 25 mg PO QID PRN itching #36 tabs 12/29/22 02/24/23 Rx ondansetron HCl 4 mg tablet 4 mg PO Q6H PRN nausea and 01/31/23 02/24/23 Rx vomiting #20 tabs Medical Marijuana 1 dose inhalation UD 02/21/23 02/24/23 History benzonatate 100 mg capsule 100 mg PO TID PRN Cough 02/21/23 02/24/23 History cyproheptadine 4 mg tablet 8 mg PO HS 02/21/23 02/24/23 History diphenhydramine HCl 25 mg capsule 50 mg PO HS 02/21/23 02/24/23 History doxycycline hyclate 100 mg capsule 100 mg PO BID 02/21/23 02/24/23 History gabapentin 300 mg capsule 300 mg PO BID 02/21/23 02/24/23 History Patient History Medical History (Updated 02/26/23 @ 23:27 by Jody Diego MD, FACOG) Anxiety Asthma Bipolar 1 disorder with judy Cholestasis of Chronic pain Degenerative lumbar disc Heart murmur per patient was told at 17 years of age that when she is stressed "heart skips a couple beats" Denies h/o echo or being told of valve issue; denies change or worsening Hx of carpal tunnel syndrome bilat. Hx of migraines Medical marijuana use Neuropathy Restless leg syndrome Sciatica Smoker 10-20 per day Tendonitis TMJ (temporomandibular joint disorder) clicks and pops, no locking for "quite some time" Varicella vaccination Surgical History S/P section x3 S/P cholecystectomy S/P dilatation and curettage S/P shoulder surgery S/P tonsillectomy and adenoidectomy S/P wisdom tooth extraction Family History Grandmother (Maternal) Breast cancer Grandmother (Paternal) Diabetes Grandfather (Paternal) Diabetes Brother Spina bifida half brother, age 2 Denies family history of Ovarian cancer Colorectal cancer Social History (Updated 07/29/22 @ 13:25 by Lisy Ortiz) Smoking Status: Current every day smoker Tobacco Type: Cigarettes Cigarettes Per Day: 10-20; Second Hand Exposure: Yes; Do You Dip or Chew Tobacco: No; Hx Alcohol Use: Yes Hx Substance Use: Yes (medical card) Last Used Substance Other:: daily-uses about 3x per day, just a few "puffs" each time Preferred Language: Lithuanian Communication Ability: Effective Machine Operator Required: No Beliefs That Will Affect Care: None marital status: marital status details: Ramirez Akhtar(54) [phone] Current Living Situation: Spouse and Family Current Living Situation Comment: lives with spouse, 4 children, dogs, cats- spouse changing litter current occupational status: employed 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 Date GA wks Lbr Lgth wt Sex Type del Anes Place Del Prov ? Comment 11/04/15 40 24 6-15 M Vaginal-V acuum Epidural [facility] N pp hemorrhage with D&C, baby with pneumothorax, oligo, patient stopped breathing right after delivery 12/19/16 39 5-13 F Spi [facility] Dr. Montague N elective 05/30/18 37 6 F Spinal [facility] N cholestasis 02/24/21 38 6 F Spinal [facility] N cholestasis 01/19/22 Aborted-Spontaneous 03/22/22 Aborted-Spontaneous HOME HOSPICE RN History noncontributory Physical Exam Constitutional: WD/WN, vitals as above Neck: trachea midline, no thyromegaly Gastrointestinal (Abdomen): soft, gravid , nt, incision c/d/i Psychiatric: A+Ox3, euthymic affect Coding Level of Care Code None Diagnoses Tobacco smoking affecting O99.330 Need for rhogam due to Rh negative mother Z29.13 Previous delivery affecting , antepartum O34.219 Group beta Strep positive B95.1 Pelvic kidney Q63.2 Chronic pain G89.29
[2023-02-27] MEDS ORDERED: SODIUM CHLORIDE 0.9% 250 ML IV PRN ×2 (05:32→06:01)
[2023-02-27] MEDS ORDERED: CITRIC ACID/SODIUM CITRATE 15 ML UDC PO SCH (06:00)
[2023-02-27] MEDS ORDERED: LACTATED RINGER'S 1,000 ML IV SCH (06:00)
[2023-02-27] MEDS ORDERED: ceFAZolin 3,000 MG in DEXTROSE 5% 50 ML IV SCH (06:00)
[2023-02-27 06:04] LABS: Amphetamines+Metham, Urine Neg (Neg); Barbiturates, Urine Neg (Neg); Benzodiazepine, Urine Neg (Neg); Cocaine, Urine Neg (Neg); MDMA (Ecstacy), Urine Neg (Neg); Methadone, Urine Neg (Neg); Opiate, Urine Pos (Neg); Phencyclidine, Urine Neg (Neg)
[2023-02-27 06:09] LABS: Basophils % (auto) 0.9 %; Eosinophils # (auto) 0.37 K/uL (0.00-0.50); Eosinophils % (auto) 3.3 %; Hemoglobin 11.9 g/dl (12.0-16.0); Immature Granulocytes # (auto) 0.05 K/uL (0.01-0.20); Immature Granulocytes % (auto) 0.5 %; Lymphocytes # (auto) 2.68 K/uL (1.20-3.40); Lymphocytes % (auto) 24.2 %; Mean Corpuscular Hemoglobin 29.5 pg (25.0-34.0); Mean Corpuscular Volume 86.8 fL (80.0-100.0); Mean Platelet Volume 12.4 fL (9.4-12.4); Monocytes # (auto) 0.65 K/uL (0.11-0.59); Monocytes % (auto) 5.9 %; Neutrophils # (auto) 7.22 K/uL (1.40-6.50); Neutrophils % (auto) 65.2 %; Platelet Count 181 K/uL (130-400); RDW Coefficient of Variation 13.1 % (11.5-14.5); RDW Standard Deviation 40.9 fL (36.4-46.3); Red Blood Count 4.03 M/uL (4.20-5.40); White Blood Count 11.07 K/ul (4.8-10.8)
[2023-02-27] MEDS ORDERED: OXYTOCIN 10 UNITS/ML VIAL ONE (06:51)
[2023-02-27] MEDS ORDERED: fentaNYL citrate PF 100 MCG/2 ML VIAL ONE (06:51)
[2023-02-27] MEDS ORDERED: PHENYLEPHRINE HCL 10 MG/ML VIAL ONE (06:51)
[2023-02-27] MEDS ORDERED: MoRPHine SULFATE PF 1 MG/ML 10 ML AMP/VIAL ONE (06:51)
[2023-02-27] MEDS ORDERED: NALOXONE HCL 1 MG in SODIUM CHLORIDE 0.9% 1,000 ML IV PRN (07:20)
[2023-02-27] MEDS ORDERED: NALOXONE HCL 0.08 MG in SYRINGE 1.8 ML IV PRN (07:20)
[2023-02-27] MEDS ORDERED: ePHEDrine sulfate 50 MG/ML AMP IV PRN (07:20)
[2023-02-27] MEDS ORDERED: NALOXONE HCL 0.4 MG/1 ML VIAL/CARP IV PRN (07:20)
[2023-02-27] MEDS ORDERED: LACTATED RINGER'S 500 ML IV PRN (07:20)
[2023-02-27] MEDS ORDERED: ONDANSETRON INJ 2 MG/ML 2 ML VIAL IV PRN ×2 (07:20→09:06)
[2023-02-27] MEDS ORDERED: diphenhydrAMINE 50 MG/ML VIAL IV PRN (07:20)
[2023-02-27] MEDS ORDERED: NALBUPHINE HCL INJ 10 MG/ML AMP IV PRN (07:20)
[2023-02-27] MEDS ORDERED: MoRPHine SULFATE PF 1 MG/ML 10 ML AMP/VIAL INT SPINAL ONE (07:20)
--- NOTE | 2023-02-27 07:22 | History & Physical Bridge Note ---
Date of Service February 27, 2023 History & Physical Bridge Note I have examined the patient, reviewed the History & Physical and in the interval since the performance of the History & Physical I have noted the following changes of clinical significance: Patient uds + for MJ as she has been taking with her medical MJ card which she has produced for us and opiates. She was prescribed a cough syrup with codeine, last taken on Sat night. She was also recently on a 7 day course of doxycycline given to her by [facility] that she finished a few days ago. Recent neg covid test at [facility]. Otherwise, no changes to her history.
[2023-02-27] MEDS ORDERED: DC INTRASPINAL MORPHINE SCH (07:30)
[2023-02-27] MEDS ORDERED: SODIUM CHLORIDE 0.9% 1,000 ML IV SCH (07:30)
[2023-02-27] MEDS ORDERED: NO NARCOTICS OR SEDATIVES SCH (07:30)
[2023-02-27] MEDS ORDERED: ONDANSETRON INJ 2 MG/ML 2 ML VIAL ONE (08:31)
--- NOTE | 2023-02-27 08:40 | Operative Report ---
PG Post Operative Report Pre & Post Diagnosis Operation Date: 02/27/23 07:30 Pre-Op Diagnosis: at 39.6 weeks gestation History of cesearean section x3 Post-Op Diagnosis: same I identified the patient and participated in the time-out.: Yes Procedure Operation Date: 02/27/23 07:30 Actual Procedures p Repeat Lower Transverse Section in LD for live female at 0801 - Jody Muñoz MD, FACOG Surgeon Jody Muñoz MD, FACOG Sand Polisher Dr. Madera, PGY1 Estimated Blood Loss 500 Findings Consistent with Post-Op Diagnosis viable female in cephalic presentation, apgars 7/9, clear fluid on arom. nl appearing uterus/tubes/ovaries Fluids ivf--800cc uop--200cc, slightly blood tinged Specimens placenta Drains sosa Anesthesia Type Spinal Complications none Disposition Accompanied Patient To Recovery: Yes Disposition: L&D Indications Patient is a with iup at 39 6/7 weeks. Presents for repeat c/s #4 Description of Procedure The patient was taken to the operating room where she was identified verbally and by bracelet. She was seated on the operating table where a spinal anesthetic was placed by anesthesia. She was then placed in the supine position with a leftward tilt. A Sosa catheter was placed sterilely. the patient was prepped and draped in a normal standard fashion. the anesthetic was tested and found to be adequate. A time-out was held, identifying correct patient, pr ocedure, positioning and preoperative antibiotics. There were no concerns. The scar of the Pfannenstiel incision was excised with a knife. The knife was then used to go down to the underlying layer of fascia. Bleeding was attended to with the Bovie. The fascia was incised in the midline with the knife and taken out laterally with scissors. The superior edge of the fascial incision was grasped, elevated and the underlying layer of rectus muscle was taken off bluntly and with scissors. In a similar fashion, the inferior edge of the fascial incision was grasped, elevated and the underlying layer of rectus muscle was taken off bluntly and with scissors. The muscles were bluntly in the midline. The peritoneum was entered sharply with scissors. The incision was then stretched. The bladder blade was placed. The vesicouterine peritoneum was identified, entered with scissors and taken out laterally with scissors. The bladder flap was created digitally A hysterotomy incision was scored with a knife, entered with a snap and the incision was stretched superiorly and inferiorly with the forge press operator's fingers. The operators hand was placed into the incision and the head was delivered atraumatically. No nuchal cord. The nose and mouth were bulb suctioned. the rest of the infant was then delivered without difficulty. The nose and mouth were again bulb suctioned. The cord was clamped and cut and the was then handed off to the awaiting publication designer for drying and attention. Cord blood and segment were obtained. The placenta was Manually expressed. The uterus was exteriorized and cleared of all clot and debris with moistened laparotomy sponges. The hysterotomy incision was repaired in two layers, the first in a running locked layer, the second in an imbricating layer. Hemostasis was noted to be good. Posterior cul-de-sac was irrigated and cleared of all clot and debris. The hysterotomy incision was again inspected and found to be hemostatic. the uterus was reinteriorized. Hysterotomy incision was again inspected and found to be hemostatic. Rectus muscles were reapproximated with several interrupted stitches of 0 Vicryl. The fascia was then reapproximated with 0 Vicryl starting at the edges and meeting in the midline. The subcuticular tissues were copiously irrigated and bleeding was attended to with cautery. The skin was then closed with 4-0 Vicryl in a subcuticular fashion. All sponge, lap and needle counts were correct x 2. The patient tolerated the procedure well and taken to the recovery room in stable condition. I attest to the content of the Intraoperative Record and any orders documented therein. Any exceptions are noted below. OB Procedure Charges 04602
[2023-02-27] MEDS ORDERED: hydrOXYzine HCl 25 MG TAB PO PRN (09:06)
[2023-02-27] MEDS ORDERED: MAGNESIUM HYDROXIDE SUSP 30 ML UDC PO PRN (09:06)
[2023-02-27] MEDS ORDERED: ALBUTEROL HFA 8 GM INHALER INH PRN (09:06)
[2023-02-27] MEDS ORDERED: SENNA 8.6 MG TAB PO PRN (09:06)
[2023-02-27] MEDS ORDERED: BENZOCAINE 20% SPRY 85 APPLN/85 GM CAN EXT PRN (09:06)
[2023-02-27] MEDS ORDERED: OXYTOCIN 20 UNITS in LACTATED RINGER'S 1,000 ML IV SCH (09:06)
[2023-02-27] MEDS ORDERED: DIPHTHERIA/TETANUS/PERTUSSIS Vaccine (Tdap, Age 7+yrs) 0.5mL SYR/VL IM ONE (09:06)
[2023-02-27] MEDS ORDERED: diphenhydrAMINE Capsule 25 MG CAP PO PRN (09:06)
[2023-02-27] MEDS ORDERED: HYDROCORTISONE ACETATE 25 MG SUPP PR PRN (09:06)
[2023-02-27] MEDS: KETOROLAC 30 MG/ML VIAL IV PRN ×3 (10:14→23:09)
--- NOTE | 2023-02-27 10:14 | Anesthesiology Progress Note ---
Date of Service February 27, 2023 Anesthesia Post Procedure Vital Signs Vital Signs: Temp Pulse Resp BP Pulse Ox 02/27/23 05:38 36.8 C 18 02/27/23 10:10 63 98 02/27/23 10:05 58 L 112/71 97 02/27/23 10:00 61 97 02/27/23 09:55 58 L 97 02/27/23 09:56 60 101/62 02/27/23 09:50 62 97 02/27/23 09:45 64 97 02/27/23 09:40 61 99 02/27/23 09:35 73 98 02/27/23 09:30 62 97 02/27/23 09:28 60 109/56 L 02/27/23 09:25 59 L 98 02/27/23 09:20 64 98 02/27/23 09:15 62 106/55 L 97 02/27/23 09:10 63 97 02/27/23 09:05 97 02/27/23 09:05 63 02/27/23 09:05 61 124/58 L 02/27/23 09:00 60 99 02/27/23 08:55 97 02/27/23 08:55 63 02/27/23 08:55 61 121/61 02/27/23 08:50 62 96 02/27/23 08:45 70 122/61 98 02/27/23 08:40 72 96 02/27/23 08:35 77 97 02/27/23 08:34 76 122/65 02/27/23 05:40 77 124/79 Pain Intensity Bilateral Back: Pain Intensity: 4 Transfer of Care Handoff Completed per policy Notes Mental Status: alert / awake / arousable and participated in evaluation Patient Amnestic to Procedure: Yes Nausea / Vomiting: adequately controlled Pain: adequately controlled Airway Patency, RR, SpO2: stable & adequate BP & HR: stable & adequate Hydration State: stable & adequate Neuraxial Anesthesia: was administered and sensory block is resolving Anesthetic Complications: no major complications apparent and Pt Satisfied with anesthetic care
[2023-02-27] MEDS: NICOTINE 14 MG/24 HR PATCH TD SCH (10:17)
[2023-02-27] MEDS: ALBUTEROL HFA 8 GM INHALER INH SCH ×4 (10:49→23:21)
[2023-02-27] MEDS: SIMETHICONE 80 MG CHEW PO SCH ×3 (12:31→20:57)
[2023-02-27] MEDS: HYDROmorphone INJ 0.5 MG/0.5 ML SYR IV PRN ×2 (14:04→20:58)
[2023-02-27] MEDS: GABAPENTIN 300 MG CAP PO SCH ×2 (14:06→20:57)
[2023-02-27] MEDS: LACTATED RINGER'S 1,000 ML IV SCH ×3 (14:49→22:44)
[2023-02-27] MEDS ORDERED: LACTATED RINGER'S 500 ML IV ONE (17:31)
--- NOTE | 2023-02-27 18:57 | Obstetrical Progress Note ---
Date of Service <Angel Duff MD - Last Filed: 02/28/23 08:06> February 27, 2023 Assessment & Plan <Angel Duff MD - Last Filed: 02/28/23 08:06> (1) delivery delivered: Plan 27 yo , status post , for a on 02/27/23 -Incision looks good, very little erythema or edema. - Pt doing alright but dealing with month-long Hx of productive cough, congestion, some chest congestion. Feels a little better today. Eating well, voiding well, ambulating well. Pain well controlled with PRN pain meds. - Routine care -- OOB, ambulation, diet progression as tolerated Vital Signs reviewed and WNL (Tmax at 36.8) except as noted: BP 106/55 immediately following , P 58 following Hemoglobin Reviewed. 11.9 (02/27/23) 7.7 (today). Blood Type: B-, GBS+, Rubella Immune. Encourage ambulation, monitor and control pain with Motrin PRN, resume regular diet, monitor lochia. Breast feeding encouraged. After discharge will have 6 week follow-up with Dr. Muñoz. Pt counselled on discharge instructions (only if they are going home that day). <Jody Muñoz MD, FACOG - Last Filed: 02/28/23 08:17> (1) delivery delivered: Subjective <Angel Duff MD - Last Filed: 02/28/23 08:06> Ambulation: ambulating normally Voiding: no voiding problems Passing Gas:: Yes Diet Tolerance:: regular diet Lochia:: Moderate Feeding Type:: breast feeding (along w/ formula feeding) Current Pain Level(1-10): 6 (worse when moving about or coughing, diffuse abd soreness) Constitutional: no fever or no chills Respiratory: + cough (month-long Hx of cough, congestion) and + chest congestion; no dyspnea Cardiovascular: no chest pain or no palpitations Breast: no breast pain Gastrointestinal: no nausea, no vomiting (none since getting out of OR, [id number]), no constipation (still no BM though) or no diarrhea/loose stools Musculoskeletal: no myalgia (no calf pain or tenderness) Physical Exam <Angel Duff MD - Last Filed: 02/28/23 08:06> Respiratory + labored breathing (coarse breath sounds bilaterally) and + audible wheezes (end expiratory wheezing) Cardiovascular RRR, no murmur, no edema Gastrointestinal (Abdomen) normal bowel sounds, soft, nontender, no hepatosplenomegaly Inspection/Auscultation: abdomen normal to inspection (incisional site with mild/nml erythema and very mild swelling) Results & Data <Angel Duff MD - Last Filed: 02/28/23 08:06> Vital Signs (Past 12 Hours) Vital Signs Temp Pulse Pulse Resp BP Pulse Ox O2 Del Method 02/27/23 18:30 18 99 02/27/23 17:05 18 99 02/27/23 16:10 16 98 02/27/23 15:35 16 97 02/27/23 14:30 18 97 02/27/23 16:10 36.4 C L 86 16 107/73 98 02/27/23 16:10 Room Air 02/27/23 16:10 Room Air 02/27/23 13:10 18 98 02/27/23 15:55 68 18 98 Room Air 02/27/23 12:30 16 95 02/27/23 11:25 36.4 C L 65 16 122/79 02/27/23 11:25 Room Air 02/27/23 11:30 18 97 02/27/23 09:15 16 Room Air 02/27/23 08:35 36.5 C 22 02/27/23 09:35 36.5 C 19 02/27/23 10:51 65 15 99 Room Air 02/27/23 10:50 69 98 02/27/23 10:45 97 02/27/23 10:45 69 02/27/23 10:45 65 106/60 02/27/23 10:40 65 97 02/27/23 10:35 98 02/27/23 10:35 66 02/27/23 10:35 63 108/69 02/27/23 10:30 67 97 02/27/23 10:25 66 111/69 98 02/27/23 10:20 61 98 02/27/23 10:15 59 L 112/72 98 02/27/23 10:10 63 98 02/27/23 10:05 58 L 112/71 97 02/27/23 10:00 61 97 02/27/23 09:55 58 L 97 02/27/23 09:56 60 101/62 02/27/23 09:50 62 97 02/27/23 09:45 64 97 02/27/23 09:40 61 99 02/27/23 09:35 73 98 02/27/23 09:30 62 97 02/27/23 09:28 60 109/56 L 02/27/23 09:25 59 L 98 02/27/23 09:20 64 98 02/27/23 09:15 62 106/55 L 97 02/27/23 09:10 63 97 02/27/23 09:05 97 02/27/23 09:05 63 02/27/23 09:05 61 124/58 L 02/27/23 09:00 60 99 02/27/23 08:55 97 02/27/23 08:55 63 02/27/23 08:55 61 121/61 02/27/23 08:50 62 96 02/27/23 08:45 70 122/61 98 02/27/23 08:40 72 96 02/27/23 08:35 77 97 02/27/23 08:34 76 122/65 FiO2 02/27/23 18:30 02/27/23 17:05 02/27/23 16:10 02/27/23 15:35 02/27/23 14:30 02/27/23 16:10 02/27/23 16:10 02/27/23 16:10 02/27/23 13:10 02/27/23 15:55 02/27/23 12:30 02/27/23 11:25 02/27/23 11:25 02/27/23 11:30 02/27/23 09:15 02/27/23 08:35 02/27/23 09:35 02/27/23 10:51 21 02/27/23 10:50 02/27/23 10:45 02/27/23 10:45 02/27/23 10:45 02/27/23 10:40 02/27/23 10:35 02/27/23 10:35 02/27/23 10:35 02/27/23 10:30 02/27/23 10:25 02/27/23 10:20 02/27/23 10:15 02/27/23 10:10 02/27/23 10:05 02/27/23 10:00 02/27/23 09:55 02/27/23 09:56 02/27/23 09:50 02/27/23 09:45 02/27/23 09:40 02/27/23 09:35 02/27/23 09:30 02/27/23 09:28 02/27/23 09:25 02/27/23 09:20 02/27/23 09:15 02/27/23 09:10 02/27/23 09:05 02/27/23 09:05 02/27/23 09:05 02/27/23 09:00 02/27/23 08:55 02/27/23 08:55 02/27/23 08:55 02/27/23 08:50 02/27/23 08:45 02/27/23 08:40 02/27/23 08:35 02/27/23 08:34 <Jody Muñoz MD, FACOG - Last Filed: 02/28/23 08:17> Co-Signing Physician Notes Resident Physician Supervision Note: I interviewed and examined the patient. Discussed with Dr. Montgomery and agree with findings and plan as documented in the note. Any exceptions or clarifications are listed here: POD#1 from repeat c/s. Doing well from a postop standpoint. hgb today is 7.7 down from 11.9. She is currently asymptomatic from this so will continue to monitor, ambulating without difficulty. Respiratory status still remains a concern. Had respiratory come by yesterday. They recommended nebulizer, she declined, only did inhaler. She notes she has been doing her isb hourly. However, her lung exam reveals poor air movement, wheezing and rales throughout. She continues to note significant cough despite cough syrup with codeine. Will get RT back and have her do the nebs--told the patient that the inhalers alone are not doing it. She is agreeable. Will also get a chest xray and get medicine involved for evaluation and recommendation for treatment. Has had s/s of uri for over a month now with significant cough. She notes she has not had a chest Xray. Recently finished a course of antibiotics which she notes was doxycycline. WBC count is wnl and she had been sating wnl on room air. Vitals are stable, not tachycardic. Encourage continued postop milestones. Documented By: Jody Muñoz MD, FACOG
[2023-02-27] MEDS: CYPROHEPTADINE HCL 4 MG TAB PO SCH (20:57)
[2023-02-27] MEDS: DOCUSATE SODIUM 100 MG CAP PO SCH (20:57)
[2023-02-27] MEDS: guaiFENesin/CODEINE 100MG/10MG 5ML UDC PO PRN (22:01)
[2023-02-28] MEDS ORDERED: KETOROLAC 30 MG/ML VIAL IV PRN (01:20)
[2023-02-28] MEDS ORDERED: PROMETHAZINE HCL 25 MG in SODIUM CHLORIDE 0.9% 50 ML IV PRN (01:21)
[2023-02-28] MEDS ORDERED: diphenhydrAMINE 50 MG/ML VIAL IV PRN (01:21)
[2023-02-28] MEDS ORDERED: diphenhydrAMINE Capsule 25 MG CAP PO PRN (01:21)
[2023-02-28] MEDS: oxyCODONE/ACETAMINOPHEN 5mg/325mg TAB PO PRN ×6 (02:19→23:21)
[2023-02-28] MEDS: IBUPROFEN 600 MG TAB PO PRN ×6 (02:19→23:22)
[2023-02-28] MEDS: ALBUTEROL HFA 8 GM INHALER INH SCH ×6 (02:34→23:44)
[2023-02-28 06:37] LABS: Hematocrit (blood only) 22.7 % (37.0-47.0); Hemoglobin 7.7 g/dl (12.0-16.0); Mean Corpuscular Hemoglobin 29.7 pg (25.0-34.0); Mean Corpuscular Hgb Conc 33.9 g/dL (32.0-36.0); Mean Corpuscular Volume 87.6 fL (80.0-100.0); Mean Platelet Volume 12.4 fL (9.4-12.4); Platelet Count 134 K/uL (130-400); RDW Coefficient of Variation 13.3 % (11.5-14.5); RDW Standard Deviation 42.1 fL (36.4-46.3); Red Blood Count 2.59 M/uL (4.20-5.40); White Blood Count 9.24 K/ul (4.8-10.8)
[2023-02-28 07:00] LABS: Basophils # (auto) 0.05 K/uL (0.00-0.20); Basophils % (auto) 0.5 %; Eosinophils % (auto) 2.2 %; Immature Granulocytes # (auto) 0.05 K/uL (0.01-0.20); Immature Granulocytes % (auto) 0.5 %; Lymphocytes # (auto) 2.23 K/uL (1.20-3.40); Lymphocytes % (auto) 24.1 %; Monocytes # (auto) 0.47 K/uL (0.11-0.59); Monocytes % (auto) 5.1 %; Neutrophils # (auto) 6.24 K/uL (1.40-6.50); Neutrophils % (auto) 67.6 %; RBC Morphology Unremarkable
--- NOTE | 2023-02-28 08:56 | XRay Report ---
XR chest 2V PA/lateral CLINICAL HISTORY: 1 month Hx of cough, congestion; poor lung exam TECHNIQUE: 2 views of the chest were obtained. Comparison: None available at the time of this dictation. FINDINGS: No lines and tubes are seen. The cardiomediastinal silhouette is normal. The lungs are clear. No evid ence of pleural effusion or pneumothorax. There is a trace amount of air under the right hemidiaphrag m. IMPRESSION: No acute pulmonary abnormality. Trace pneumoperitoneum is compatible with recent surgical history. ACT 112: Negative or not required by law. Electronically signed by: Nhan Black M.D. 02/28/2023 8:54 AM
[2023-02-28] MEDS: guaiFENesin/CODEINE 100MG/10MG 5ML UDC PO PRN ×3 (09:00→20:13)
[2023-02-28] MEDS: NICOTINE 14 MG/24 HR PATCH TD SCH ×2 (09:01→16:58)
[2023-02-28] MEDS: GABAPENTIN 300 MG CAP PO SCH ×2 (09:01→20:05)
[2023-02-28] MEDS: FERROUS SULFATE 325 MG TAB PO SCH (09:08)
[2023-02-28] MEDS: DOCUSATE SODIUM 100 MG CAP PO SCH ×2 (09:08→20:04)
[2023-02-28] MEDS: PRENATAL VITAMIN 1 TAB PO SCH (09:08)
[2023-02-28] MEDS: SIMETHICONE 80 MG CHEW PO SCH ×4 (09:09→20:06)
--- NOTE | 2023-02-28 10:35 | Hospitalist Consultation ---
Date of Consultation February 28, 2023 Assessment & Plan (1) Wheezing: -We were consulted due to ongoing wheezing for this 27 year old patient who is Post-OP day #1 S/P Lower Transverse Section -Patient has been stable on RA, hemodynamically stable, with HR WNL, and afebrile since arrival -Patient has been experiencing chest/head congestion, increased wheezing, and a non-productive cough over the past month -Did complete a 10 day course of Doxycycline at the end of last month without significant improvement in symptoms -Patient typically smokes 1.5-2 packs per day and has significant wheezing and rhonchi throughout her lungs -Chest xray obtained this am was negative for focal consolidation or volume overload, did show Trace pneumoperitoneum is compatible with recent surgical history -At this time her differential includes but is not limited to bronchitis, undiagnosed COPD, asthma exacerbation, viral respiratory infection, and PE -Just completed a DuoNeb treatment with some improvement in symptoms, can continue prn DuoNebs as ordered by the primary team -Started on Guaifenesin/Codeine as ordered by the primary team -Already ordered incentive spirometry, will add flutter valve as well -Will hold systemic glucocorticoids at this time as they cross into breast milk and can have negative side effects in infants, and the patient has been stable -Will discuss the option to start patient on a LABA with Pulmonology as she is not getting significant improvement with SANTOS's alone -Will obtain full respiratory biofire and BL LE venous dopplers for further evaluation -Will obtain mag level, if < 2.0 will give 2gm IV mag sulfate -Will obtain procal for further evaluation of bacterial pneumonia -Thank you for allowing us to participate in the care of this patient, please reach out with any other questions or concerns -Medicine will continue to follow (2) Chest pain: -Patient developed acute, lower right chest wall pain approximately one hour ago -Pain is exacerbated with deep inspiration, cough, and palpation -No obvious sign of DVT in the BL LE's, has been hemodynamically stable, stable on RA, with HR WNL -Likely musculoskeletal in nature from ongoing cough over the past month, but cannot exclude PE at this time as she is high risk with recent and tobacco abuse -Will obtain BL LE venous dopplers for further evaluation and obtain ECG -Continue pain control as ordered by the primary team (3) Tobacco smoking affecting : -Smoking approximately 1.5-2 PPD -Continue nicotine patch, will add prn nicotine gum for breakthrough cravings -Continue to stress the importance of smoking cessation (4) Heart murmur: -Systolic murmur noted on exam today -Patient confirms she was told she had a murmur since the age of 17, has never been full evaluated with Echo -No signs of CHF on exam or CXR, will hold off on Echo for now -Could obtain TTE during admission if her clinical status worsens Plan The patient was discussed with Dr. Nolasco at the time of the evaluation Supervising Physician Co-Signing Physician Notes Chart reviewed, case discussed with LLOYD Ziegler-Tiffanie I agree with the assessment and plan as above except as otherwise noted Labs and images reviewed 27-year-old female s/p scheduled , also medicine has been consulted for wheezing. Patient has an extensive history of 2 pack/day tobacco abuse with asthma. Patient did have wheezing earlier in the month in addition to congestion and nonproductive cough, completed 10 days of doxycycline last month but did not experience significant improvement. She has not been hypoxic or tachycardic. Chest x-ray is with out acute pulmonary abnormality, trace pneumoperitoneum which is consistent with recent is noted. No evidence of pneumonia or pulmonary edema. On PA exam patient is with diffuse expiratory wheezing and rhonchi. 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 Recommend addition of Symbicort inhaler,/benefits during including transfer into breastmilk discussed however systemic absorption likely to be low and benefits of treatment of current exacerbation outweighs risks. Recommend continuing flutter valve, incentive spirometry, DuoNebs as needed, Symbicort 160/4.82 puffs twice daily, and adding magnesium repletion x2 g. Procalcitonin is negative, patient is afebrile. No indication for antibiotics at this time. Agree with assessment and management above History of Present Illness Reason for Consultation: Increased Wheezing Requesting Physician: Jody Muñoz MD, FACOG Attending Physician: Dr. Radames Nolasco History of Present Illness Jennifer is a 27 year old female with a PMH significant for tobacco abuse (smokes 2 PPD), medical marijuana use, RH negativity, and asthma who presented to the [facility] on 02/26 for scheduled . Per the operative report on 02/27, EBL was listed as 500, anesthesia was listed as spinal, and there were no reported intraoperative complications. We were contacted this am due to concerns for increased wheezing. The patient has remained stable on RA and CXR from this am was read as "No acute pulmonary abnormality. Trace pneumoperitoneum is compatible with recent surgical history.". Labs from this am are significant for a Hgb of 7.7 (down from 11.9 as of 02/27). Of note, the patient was given 2 puffs of albuterol at 0753, as-well-as 5 mL of Guaifenesin/Codeine at 0900. At the time of the exam the patient was sitting in bed in no acute distress with her significant other sitting bedside. The patient was finishing her first DuoNeb nebulizer treatment at the beginning of my exam. She states that she has been experiencing increased congestion, a non-productive cough, and chest congestion over the past month. She was prescribed and completed a 10 day course of Doxycycline by her PCP at the end of last month, she did not experience significant relief after completing the Doxycycline. She is smoking approximately 1.5-2 packs of cigarettes daily. She currently has a nicotine patch in place but is still experiencing significant nicotine cravings. She feelings as though the DuoNeb treatment and the hot shower improved her symptoms but did not resolve them. She is experiencing right lower rib pain which started approximately one hour ago. This is preventing her from taking deep breaths and coughing up sputum. She has been stable on RA, hemodynamically stable, and with HR WNL since arrival to the hospital. Please refer to Dr. Nolasco's attestation for any changes to the treatment plan Allergies Allergy/AdvReac Type Severity Reaction Status Date / Time coconut Allergy Severe ANAPHYLAXIS Verified 02/24/23 11:15 guanfacine Allergy Severe DELIRIUM Verified 02/24/23 11:15 lamotrigine Allergy Severe DELIRIUM Verified 02/24/23 11:15 lithium Allergy Severe MENTALLY Verified 02/24/23 11:15 UNAWARE OF ACTIONS ketchup Allergy Mild Hives Verified 02/27/23 21:52 risperidone Allergy Unknown RASH Verified 02/24/23 11:15 Home Medications Medication Instructions Recorded Confirmed Type albuterol sulfate 90 mcg/actuation 1 - 2 puff inhalation Q4H PRN 09/21/22 02/24/23 History aerosol inhaler shortness of breath, wheezing multivitamin 1 tab PO DAILY 09/21/22 02/24/23 History hydroxyzine HCl 25 mg tablet 25 mg PO QID PRN itching #36 tabs 12/29/22 02/27/23 Rx ondansetron HCl 4 mg tablet 4 mg PO Q6H PRN nausea and 01/31/23 02/24/23 Rx vomiting #20 tabs Medical Marijuana 1 dose inhalation UD 02/21/23 02/24/23 History cyproheptadine 4 mg tablet 8 mg PO HS 02/21/23 02/27/23 History diphenhydramine HCl 25 mg capsule 50 mg PO HS 02/21/23 02/27/23 History gabapentin 300 mg capsule 300 mg PO BID 02/21/23 02/27/23 History Robitussin A-C 5 ml PO Q4 PRN Cough 02/27/23 02/27/23 History Patient History Medical History (Updated 02/28/23 @ 12:22 by Edmundo Avila PA-C) Anxiety Asthma Bipolar 1 disorder with judy Cholestasis of Chronic pain Degenerative lumbar disc Heart murmur per patient was told at 17 years of age that when she is stressed "heart skips a couple beats" Denies h/o echo or being told of valve issue; denies change or worsening Hx of carpal tunnel syndrome bilat. Hx of migraines Medical marijuana use Neuropathy Restless leg syndrome Sciatica Smoker 10-20 per day Tendonitis TMJ (temporomandibular joint disorder) clicks and pops, no locking for "quite some time" Varicella vaccination Surgical History S/P section x3 S/P cholecystectomy S/P dilatation and curettage S/P shoulder surgery S/P tonsillectomy and adenoidectomy S/P wisdom tooth extraction Family History Grandmother (Maternal) Breast cancer Grandmother (Paternal) Diabetes Grandfather (Paternal) Diabetes Brother Spina bifida half brother, age 2 Denies family history of Ovarian cancer Colorectal cancer Social History (Updated 07/29/22 @ 13:25 by Lisy Ortiz) Smoking Status: Current every day smoker Tobacco Type: Cigarettes Cigarettes Per Day: 20; Second Hand Exposure: Yes; Do You Dip or Chew Tobacco: No; Tobacco Cessation Education Requested by Patient: No Hx Alcohol Use: Yes Hx Substance Use: No (medical majuana card) Preferred Language: Slovak Communication Ability: Effective Fruit Farmer Required: No Beliefs That Will Affect Care: None marital status: marital status details: Ramirez Akhtar(54) [phone] Current Living Situation: Alone Current Living Situation Comment: lives with spouse, 4 children, dogs, cats- spouse changing litter current occupational status: employed 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 Other Information That Helps Us Care for You: No Feels Safe at Home: Yes Safety Concerns: Feels Safe At This Time Assistive Devices: None Assistive Devices Comment: contacts for driving and reading-will not wear dos Physical Exam Physical Exam: Physical Exam: General: In no acute distress, stated age, chronically ill appearing but non- toxic HEENT: Normocephalic, atraumatic, no scleral icterus, pupils around round, symmetrical, and reactive to light, moist mucus membranes, trachea midline, no thyromegaly Chest/Pulm: Patient with significantly reproducible tenderness with palpation of the right lower chest wall, No respiratory distress, symmetrical chest expansion, expiratory wheezing and scattered BL rhonchi throughout, no focal consolidation noted Cardiac: RRR, 3/6 systolic murmur noted Abdomen: Negative for ascites and bruising, abdominal incision from recent C- section is intact and without signs of infection, normoactive bowel sounds, soft, tenderness to palpation near the surgical site but otherwise non-tender Musculoskeletal: Symmetrical and without signs of acute trauma, upper and lower extremities with full ROM, no atrophy, spasticity, or flaccidity Extremities: Radial, dorsalis pedis, and posterior tibial pulses are intact and symmetrical, no edema or erythema noted in the BL LE's Skin: Warm, dry, no rashes , lesions, or scars noted Neuro: Alert and oriented to person, place, month, year, and president, no focal defects, no tremors noted Psych: No acute distress, calm and cooperative during the exam Results & Data Results & Data Vital Signs (Past 12 Hours) Vital Signs Temp Pulse Resp BP Pulse Ox O2 Del Method 10/17/23 07:53 16 96 Room Air 02/28/23 01:00 18 98 02/28/23 02:28 36.6 C 90 18 122/78 Room Air 02/28/23 00:00 16 97 02/27/23 23:15 36.7 C 79 18 133/84 96 Room Air 02/27/23 23:15 18 96 Laboratory Results Abnormal lab results 02/28/23 Range/Units 06:16 RBC 2.59 L (4.20-5.40) M/uL Hgb 7.7 L D (12.0-16.0) g/dl Hct 22.7 L (37.0-47.0) % Diagnostic Findings Chest X-Ray 02/28/23 07:34 XR chest 2V PA/lateral CLINICAL HISTORY: 1 month Hx of cough, congestion; poor lung exam TECHNIQUE: 2 views of the chest were obtained. Comparison: None available at the time of this dictation. FINDINGS: No lines and tubes are seen. The cardiomediastinal silhouette is normal. The lungs are clear. No evidence of pleural effusion or pneumothorax. There is a trace amount of air under the right hemidiaphragm. IMPRESSION: No acute pulmonary abnormality. Trace pneumoperitoneum is compatible with recent surgical history. ACT 112: Negative or not required by law. Electronically signed by: Nhan Black M.D. 02/28/2023 8:54 AM ECG Additional Comments: Will obtain ECG at the time of the consult PG Care Time/CCT Total # of Minutes Spent Total Time Spent with Patient: Total time spent is greater than 50% in coordination of care (as documented) at patient's floor/unit and/or counseling patient: [place] [address] IN/OBS CONSULT LVL 5,80M Patient Type New Medical Decision Making High Complexity Diagnoses Wheezing R06.2 Chest pain R07.9 Tobacco smoking affecting O99.330 Heart murmur R01.1
[2023-02-28] MEDS: ALBUT/IPRATROP 3MG/0.5MG NEB 3 ML VIAL NEB PRN ×4 (11:21→23:44)
[2023-02-28 12:54] LABS: BUN Creatinine Ratio 19.3 (10-20); Calcium 8.4 mg/dl (8.6-10.3); Creatinine Clr Calc Pharmacy 193.3 ml/min; Est GFR (African American) 148.3 ml/min; Est GFR (Non-African American) 127.9 ml/min; Magnesium 1.8 mg/dl (1.7-2.4); Potassium 3.9 mmol/L (3.5-5.1)
[2023-02-28] MEDS: NICOTINE POLACRILEX 2 MG GUM MT PRN ×2 (13:43→17:02)
--- NOTE | 2023-02-28 14:23 | Electrocardiogram Report ---
Test Reason : Blood Pressure : / mmHG Vent. Rate : 084 BPM Atrial Rate : 084 BPM P-R Int : 112 ms QRS Dur : 084 ms QT Int : 408 ms P-R-T Axes : 037 074 049 degrees QTc Int : 482 ms Normal sinus rhythm Prolonged QT Abnormal ECG No previous ECGs available Confirmed by Alfred Flynn ([id number]) on 02/28/2023 2:23:03 PM Referred By: Jody Muñoz Confirmed By:Alfred Flynn
[2023-02-28] MEDS: MAGNESIUM SULFATE / D5W 1 GM/100 ML BAG IV SCH ×2 (14:52→16:59)
--- NOTE | 2023-02-28 14:52 | Ultrasound Report ---
US venous doppler LE BI CLINICAL HISTORY: acute chest pain/SOB, please monitor for DVT TECHNIQUE: Bilateral lower extremity real-time compression venous ultrasound with Color Doppler imagi ng. Utilizing real-time ultrasonic imaging multiple real time high-resolution ultrasonic images with compression and noncompression maneuvers of the deep venous system in addition to color doppler imagi ng were performed from the common femoral vein through the proximal calf veins. COMPARISON: None available at the time of this dictation. FINDINGS/IMPRESSION: Currently there is normal compressibility of the deep venous system from the common femoral vein thro ugh the proximal calf veins. No superficial venous thrombosis is identified. ACT 112: Negative or not required by law. Electronically signed by: Nhan Black M.D. 02/28/2023 2:50 PM
[2023-02-28 18:24] LABS: Adenovirus PCR Not Detected (NotDetected); Bordetella parapertussis PCR Not Detected (NotDetected); Bordetella pertussis PCR Not Detected (NotDetected); Chlamydia pneumoniae PCR Not Detected (NotDetected); Coronavirus 229E PCR Not Detected (NotDetected); Coronavirus CoV-2 (COVID19)PCR Not Detected (NotDetected); Coronavirus HKU1 PCR Not Detected (NotDetected); Coronavirus NL63 PCR Not Detected (NotDetected); Coronavirus OC43PCR Not Detected (NotDetected); Human Metapneumovirus PCR Not Detected (NotDetected); Influenza A PCR Not Detected (NotDetected); Influenza B PCR Not Detected (NotDetected); Mycoplasma pneumoniae PCR Not Detected (NotDetected); Parainfluenza Virus 1 PCR Not Detected (NotDetected); Parainfluenza Virus 2 PCR Not Detected (NotDetected); Parainfluenza Virus 3 PCR Not Detected (NotDetected); Parainfluenza Virus 4 PCR Not Detected (NotDetected); Respiratory Syncytial VirusPCR Not Detected (NotDetected); Rhinovirus/Enterovirus PCR Not Detected (NotDetected)
[2023-02-28] MEDS ORDERED: bisacodyL 5 MG TABEC PO SCH (20:00)
[2023-02-28] MEDS: CYPROHEPTADINE HCL 4 MG TAB PO SCH (20:04)
[2023-02-28] MEDS ORDERED: diphenhydrAMINE Capsule 25 MG CAP PO SCH (21:00)
[2023-03-01] MEDS: ALBUT/IPRATROP 3MG/0.5MG NEB 3 ML VIAL NEB PRN ×4 (03:04→15:00)
[2023-03-01] MEDS: ALBUTEROL HFA 8 GM INHALER INH SCH ×4 (03:04→15:01)
[2023-03-01] MEDS: oxyCODONE/ACETAMINOPHEN 5mg/325mg TAB PO PRN ×3 (04:35→13:01)
[2023-03-01] MEDS: IBUPROFEN 600 MG TAB PO PRN ×3 (04:36→13:01)
[2023-03-01] MEDS: guaiFENesin/CODEINE 100MG/10MG 5ML UDC PO PRN (04:40)
--- NOTE | 2023-03-01 05:52 | Obstetrical Progress Note ---
Date of Service <Angel Duff MD - Last Filed: 03/01/23 06:55> March 01, 2023 Assessment & Plan <Angel Duff MD - Last Filed: 03/01/23 06:55> (1) delivery delivered: Plan 27 yo , status post , on 02/27/23 -Incision looks good, very little erythema or edema. - Pt doing alright but dealing with month-long Hx of productive cough, congestion, some chest congestion. Feels a little better today. Eating well, voiding well, ambulating well. Pain well controlled with PRN pain meds. - Chest Xray yesterday with no abnormal findings. Trace pneumoperitoneum compatible after recent Sg. - Venous Doppler w/out findings of either DVT or superficial VT. - Hospitalist wants to see her before she's discharged. - Routine care -- OOB, ambulation, diet progression as tolerated Vital Signs reviewed and WNL (Tmax at 36.8) except as noted: BP 106/55 immediately following , P 58 following Hemoglobin Reviewed. 11.9 (02/27/23) 7.7 (today). Blood Type: B-, GBS+, Rubella Immune. Encourage ambulation, monitor and control pain with Motrin PRN, resume regular diet, monitor lochia. Breast feeding encouraged. After discharge will have 6 week follow-up with Dr. Muñoz. Pt counselled on discharge instructions (only if they are going home that day). <Darline Madera MD - Last Filed: 03/01/23 07:55> (1) delivery delivered: Subjective <Angel Duff MD - Last Filed: 03/01/23 06:55> Ambulation: ambulating normally Voiding: no voiding problems Passing Gas:: Yes Diet Tolerance:: regular diet Lochia:: Small Feeding Type:: bottle feeding (and breast) Current Pain Level(1-10): 5 (incisional site pain) Constitutional: no fever or no chills Respiratory: + cough (month-long Hx of cough, congestion) and + dyspnea on exertion; no dyspnea Cardiovascular: no chest pain or no palpitations Breast: no breast pain Gastrointestinal: no nausea, no vomiting (none since getting out of OR, scpt-C-eicseab), no constipation (still no BM though) or no diarrhea/loose stools Musculoskeletal: no myalgia (no calf pain or tenderness) Physical Exam <Angel Duff MD - Last Filed: 03/01/23 06:55> Respiratory + labored breathing (coarse breath sounds bilaterally) and + audible wheezes (end expiratory wheezing) Cardiovascular Rate/Rhythm: regular rate and regular rhythm Heart Sounds: + murmur (right sided upper sternal border murmur) Gastrointestinal (Abdomen) normal bowel sounds, soft, nontender, no hepatosplenomegaly Inspection/Auscultation: abdomen normal to inspection (incisional site with mild/nml erythema and very mild swelling) Results & Data <Angel Duff MD - Last Filed: 03/01/23 06:55> Vital Signs (Past 12 Hours) Vital Signs Temp Pulse Resp BP Pulse Ox O2 Del Method 03/01/23 03:04 84 18 97 Room Air 02/28/23 23:45 88 18 98 Room Air 02/28/23 23:35 36.6 C 95 H 18 134/87 96 Room Air 02/28/23 20:15 36.6 C 98 H 16 142/85 H 95 Room Air 02/28/23 20:15 Room Air 02/28/23 20:17 95 H 20 98 Room Air <Darline Madera MD - Last Filed: 03/01/23 07:55> Co-Signing Physician Notes Resident Physician Supervision Note: I interviewed and examined the patient. Discussed with Dr. Duff and agree with findings and plan as documented in the note. Any exceptions or clarifications are listed here: POD2 s/p rLTCS. Had hospitalist consult yesterday, appreciate recs. Duplex wnl, ecg showed just slightly long qt however was treated with magnesium and otherwise asymptomatic so ok to monitor w/o adjustment per discussion with IM. Symbicort added by IM in addition to nebs and inhaler, pt feeling better this AM and sounds better. VSS, exam benign and wnl. Slight serosanguinous drainage but w/o s/s of infection, incision intact. She thinks she would like to be d/c'd today, baby will have to stay day 5 due to findings in urine. Will send rx for percocet, await medicine recs for asthma meds. Remainder of meds to be continued at home Documented By: Darline Madera MD
[2023-03-01 07:09] LABS: Hematocrit (blood only) 23.2 % (37.0-47.0); Hemoglobin 7.8 g/dl (12.0-16.0)
[2023-03-01] MEDS ORDERED: bisacodyL 10 MG SUPP PR PRN (08:22)
[2023-03-01] MEDS: SIMETHICONE 80 MG CHEW PO SCH ×2 (08:51→13:01)
[2023-03-01] MEDS: DOCUSATE SODIUM 100 MG CAP PO SCH (08:52)
[2023-03-01] MEDS: GABAPENTIN 300 MG CAP PO SCH (08:52)
[2023-03-01] MEDS: PRENATAL VITAMIN 1 TAB PO SCH (08:52)
[2023-03-01] MEDS: NICOTINE 14 MG/24 HR PATCH TD SCH (08:52)
[2023-03-01] MEDS: FERROUS SULFATE 325 MG TAB PO SCH (08:52)
[2023-03-01] MEDS ORDERED: FLUTICASONE/VILANTEROL 200/25MCG 14 PUFFS/INHALER INH SCH (09:00)
[2023-03-01 10:58] LABS: Codeine Urine NEGATIVE ng/mL (<50); Hydrocodone Urine 92 ng/mL (<50); Hydromor Urine 64 ng/mL (<50); Marijuana Quant, GCMS Urine 162 ng/mL (<5); Morphine Urine NEGATIVE ng/mL (<50); Norhydrocodone Conf Ur 175 ng/mL (<50); Noroxycodone Urine NEGATIVE ng/mL (<50); Oxycodone Urine NEGATIVE ng/mL (<50); Oxymorph Urine NEGATIVE ng/mL (<50)
--- NOTE | 2023-03-01 13:30 | Hospitalist Progress Note ---
Date of Service March 01, 2023 Assessment & Plan (1) Wheezing: Plan: subacute exacerbation of asthma likely triggered by recent viral URI that has resolved. Significant improvement after albuterol and addition of steroid inhaler Testing for acute infection and VTE is negative as above, only minimal wheezing at this point no dyspnea or respiratory distress, no evidence of pulmonary embolism, volume overload or heart failure She reports long-term history of asthma and smoking although she only infrequently uses albuterol as needed and has had no exacerbations this year. Therefore she will probably benefit from inhaled steroid for the next 1 to 3 weeks and thereafter may not need it. I instructed her to continue the Breo Ellipta for a few weeks until symptoms resolve or until the inhaler runs out. Thereafter she will be establishing a new primary care provider and can follow- up there for her asthma. she request to continue Robitussin-AC for her coughing which has been quite troublesome versus resumption of benzonatate. I reviewed information and there is no clear safety data on benzonatate. She has been tolerating the Robitussin-AC and we discussed the risks and benefits of continuing this especially with respect to sedation of her and she is comfortable continuing it for the short-term, especially because the infant will be under observation in the hospital for the next few days and there should be less codeine present in the breastmilk as compared to the amount crossing the placenta when she was (2) Chest pain: Plan: - Right lower chest wall pain was transient, brief, and highly reproducible on palpation likely related to musculoskeletal strain from coughing versus some diaphragmatic irritation related to I have very low suspicion for other serious causes such as pulmonary embolism, or postoperative complication This issue has resolved (3) Tobacco smoking affecting : Plan: -Smoking approximately 1.5-2 PPD -Continue nicotine patch, prescription was sent -counseled ongoing efforts at smoking cessation, follow-up in primary care (4) Heart murmur: Plan: -Systolic murmur reported on initial exam, however I do not appreciate a murmur at this time. Possibly flow murmur related to anemia and/or physiologic murmur, likely benign Admission and Anticipated Discharge Date Admission Date: February 27, 2023 Bernadine Rodriguez feels much improved with respect to her breathing and wheezing today. She no longer has any right lower chest pain Physical Exam Physical Exam: PHYSICAL EXAMINATION Last 24h vital signs reviewed, see documentation in flowsheet General: comfortable appearing, no distress. Sitting on bed caring for her infant HEENT: Normocephalic, atraumatic, pupils round and equal, sclerae anicteric, no conjunctival injection, moist mucus membranes Lungs: Normal respiratory effort. Clear to auscultation bilaterally except very mild expiratory wheeze in both bases, very good air movement speaks in complete sentences Heart: Regular rate and rhythm, no murmurs Neuro: Alert and oriented x 4, face symmetric, moves 4 extremities well Psych: Normal affect and behavior Results & Data Results & Data Vital Signs (Past 12 Hours) Vital Signs Temp Pulse Pulse Resp BP Pulse Ox O2 Del Method 03/01/23 11:24 97 H 18 97 Room Air 03/01/23 10:37 36.8 C 79 20 113/69 96 03/01/23 07:50 Room Air 03/01/23 07:50 36.8 C 79 20 113/69 96 Room Air 03/01/23 07:42 86 18 98 Room Air 03/01/23 03:04 84 18 97 Room Air Laboratory Results respiratory viral panel negative, COVID-negative, procalcitonin negative, notably anemic hematocrit 23% Diagnostic Findings chest x-ray clear and unremarkable except for air under right hemidiaphragm as expected post , I personally reviewed the chest x-ray film, lower extremity duplex negative for VTE Medications Administered albuterol, Breo Ellipta, Robitussin-AC ECG Additional Comments: sinus, normal except for slight prolongation of QTc at 480 PG Care Time/CCT Total # of Minutes Spent Total Time Spent with Patient: Total time spent is greater than 50% in coordination of care (as documented) at patient's floor/unit and/or counseling patient: Coding Level of Care Code None Diagnoses Wheezing R06.2 Chest pain R07.9 Tobacco smoking affecting O99.330 Heart murmur R01.1
--- NOTE | 2023-03-03 14:05 | Discharge Summary ---
Date of Service March 03, 2023 Admission HPI Per Admitting Provider Patient is a 27yowf with iup at 39 6/7 weeks who presents to labor and delivery for a repeat c/s. Her has been complicated by poor care with limited visits. Her also compicated by the following. and Delivery Plans Need for Rhogam d/t Rh neg mother -Rhogam given 12/16/22- MK Previous x3 -for repeat CS C/S SCHEDULED FOR 02/23/[address] SOW AND DR. HART ASSIST PATIENT RESCHEDULED C/S TO 02/27/[address] DIEGO AND DR. LOPES ASSIST Hx PPH--after vavd of her first child with need for D&C, no issues with other pregnancies Asthma, Current everyday smoker, rare marijuana use Hx Cholestasis x 2 -mfm consult has recs if develops -no evidence of this in current Bipolar d/o and chronic pain disorder- med use [facility] MFM consult due to medication use- 09/26/22 -no specific monitoring for her meds -recomnd d/c MJ in GBS + urine-treat in labor Pelvic Kidney, *MFM consult Weekly NST @ 37wks Q4wk Growth OB Labs: Blood Type B Negative 09/21/22 Antibody Screen NEGATIVE 12/16/22 Hemoglobin 11.8 g/dl (12.0-16.0) L 12/16/22 Hematocrit 33.8 % (37.0-47.0) L 12/16/22 Mean Corpuscular Volume 88.7 fL (80.0-100.0) 09/21/22 Platelet Count 216 K/uL (130-400) 09/21/22 Rubella IgG Antibody Immune (Immune) 09/21/22 Rapid Plasma Reagin Nonreactive (Nonreactive) 09/21/22 Hepatitis B Surface Antigen NEG (NEG) 12/01/17 Hepatitis B Surface Antigen. NON-REACTIVE (NON-REACTIVE) 09/21/22 Hepatitis C Antibody (EIA) NON-REACTIVE (NON-REACTIVE) 09/21/22 HIV (1&2) Ab and P24 Ag, 4th Gener NEG (NEG) 12/01/17 HIV (1&2) Ag and Ab Confirmation NON-REACTIVE (NON-REACTIVE) 09/21/22 Glucose 1 Hour 50 gm Load 112 mg/dl (70-130) 12/16/22 OB Optional Labs: Chlamydia trachomatis RNA Not Detected (NotDetected) 09/09/22 Neisseria gonorrhoeae RNA Not Detected (NotDetected) 09/09/22 Labs Reviewed: gbs positive urine low risk panorama--[facility] Horizon 14 neg--[facility] Discharge Data Consultations 02/27/23 05:27 Consult Anesthesiology Stat 02/28/23 09:01 Consult Hospitalist Routine Procedures Performed Operation Date: 02/27/23 07:30 Actual Procedures p Section in LD for live female at 0801 - Jody Diego MD, [facility] Hospital Course (1) delivery delivered: (2) Tobacco smoking affecting : (3) Previous delivery affecting , antepartum: (4) Asthma: Plan Pateint was admitted and underwent a repeat lower transverse c/s without incident on 02/27/23. ebl was 500cc. Delivered a viable . PP the patient tolerated a regular diet, ambulated without difficulty, voided after removal of her sosa and had her pain well controlled on oral pain meds. H/H dropped to 7.8/23.3 but tolerated this without issue. Patient was seen and evaluated while an inpatient by the hospitalist for a subacute asthma exacerbation. Had been dealing with URI symptoms and cough for over a month. REcently finished antibiotics. She was treated with nebulizers, steriod inhaler. She had a negative cxr and Doppler evaluation for VTE. No s/s of volume overload. d/c home with a steroid inhaler, albuterol inhaler and was advised to f/u with her PCP for further management. Patient d/c home on 03/01/23 and will f/u in 6 weeks for visit in the office. Precautions given. Coding Level of Care Code None Diagnoses delivery delivered O82 Tobacco smoking affecting O99.330 Previous delivery affecting , antepartum O34.219 Asthma J45.909
== END 2023-03-01 15:18 | disposition home or self-care (01) | DRG 787 ==
LOC: EDSTATUS 07:30 → 4S1 02-27 05:20 → 4E2 02-27 11:40
DX: Z91.018 Allergy to other foods; O34.211 Maternal care for low transverse scar from previous cesarean delivery; O09.33 Supervision of pregnancy with insufficient antenatal care, third trimester; O99.344 Other mental disorders complicating childbirth; F41.9 Anxiety disorder, unspecified; O99.824 Streptococcus B carrier state complicating childbirth; O99.52 Diseases of the respiratory system complicating childbirth; J45.901 Unspecified asthma with (acute) exacerbation; G89.29 Other chronic pain; R07.89 Other chest pain; Z3A.39 39 weeks gestation of pregnancy; O35.EXX0 Maternal care for other (suspected) fetal abnormality and damage, fetal genitourinary anomalies, not applicable or unspecified; O09.893 Supervision of other high risk pregnancies, third trimester; O99.893 Other specified diseases and conditions complicating puerperium; Z79.899 Other long term (current) drug therapy; F17.210 Nicotine dependence, cigarettes, uncomplicated; Z88.0 Allergy status to penicillin; O26.893 Other specified pregnancy related conditions, third trimester; Z67.21 Type B blood, Rh negative; R01.1 Cardiac murmur, unspecified; O99.354 Diseases of the nervous system complicating childbirth; F31.9 Bipolar disorder, unspecified; O99.334 Smoking (tobacco) complicating childbirth; Z37.0 Single live birth